=== PATIENT | female | born 1930 | race Caucasian/White ===

== ENCOUNTER 2017-03-17 17:58 | Emergency (ER) | payer MEDICARE, OTHER ==
[~2017-03-17] VITALS: Ht 160 cm; Wt 56.7 kg
[2017-03-17] MEDS ORDERED: IRBE300T10 (18:11)
[2017-03-17] MEDS ORDERED: BUPR150T3 (18:11)
[2017-03-17] MEDS ORDERED: ISOS30TA4 (18:11)
[2017-03-17] MEDS ORDERED: METO100T (18:11)
[2017-03-17] MEDS ORDERED: SIMV20TA2 (18:11)
[2017-03-17] MEDS ORDERED: VITA50003 (18:11)
--- NOTE | 2017-03-17 20:00 | REPUSA ---
CLINICAL HISTORY: Fall. TECHNIQUE: Multiple axial CT images were obtained through the brain without IV contrast material. COMMENTS: There is normal configuration of sella turcica. There are no intra or extra-axial collections. There is no mass effect or midline shift. There is no evidence of hematoma formation. No hydrocephalus is p resent. The ventricles are symmetrical. No abnormal calcifications are present. There is diffuse age-appropriate cerebellar and cerebral atrophy with proportionally dilated ventricl es and cortical sulci. There are bilateral periventricular and subcortical white matter hypolucencies compatible with mild c hronic microvascular disease. Otherwise, no significant focal abnormalities are seen either in the posterior fossa or supratentoria l compartment. Note is made of a 12 mm sclerotic lesion in the right skull base which is not fully evaluated. Consi kenny further evaluation with MRI pre-and postcontrast. No evidence of fracture. IMPRESSION: 1. Age-appropriate cerebellar and cerebral atrophy. 2. Mild chronic microvascular disease. 3. No evidence of acute intracranial pathology. 4. 12 mm sclerotic lesion in the right skull base which is not fully evaluated. Consider further zia luation with MRI pre-and postcontrast. Thank you for your kind referral of this patient.
--- NOTE | 2017-03-17 20:30 | REPUSA ---
CLINICAL HISTORY: Medicare, fall, head injury. TECHNIQUE: Multiple axial CT images were obtained through the cervical spine without IV contrast mat erial. MPR coronal and sagittal sequences were obtained. COMMENTS: There is no fracture visualized. The paraspinal soft tissues are unremarkable. There are no lytic o r blastic lesions. Grade 1 anterolisthesis of C3 over C4 measures 3 mm. There is grade 1 anterolisthesis of C4 over C5 measures 2 mm. Advanced multilevel degenerative spondylosis is more severe at C4-C5, C5-C6. At this level, there is bzkglnjb-rl-bopxwo loss of disc space height. There is posterior-anterior bridging osteophytosis, Schmorl's nodes and endplate sclerosis. At C3-C4 through C5-C6 broad-based disc osteophyte complex is present. There is yyphxbwe-dh-gyoqyz b ilateral foraminal stenosis and peyv-dr-tgjksese canal stenosis. Note is made of a sclerotic lesion measuring 7 mm located in the posterior aspect of C7 vertebral bod y to the right of the midline. Consider further evaluation with MRI cervical spine pre- and postcont rast. In conjunction with findings on CT of the brain, consider additional evaluation with bone scan . Incidental note is made of severe biapical fibronodular scarring and scattered emphysematous changes. Consider also additional evaluation with chest CT. IMPRESSION: 1. Grade 1 anterolisthesis of C3 over C4 measures 3 mm. There is grade 1 anterolisthesis of C4 over C5 measures 2 mm. Advanced multilevel degenerative spondylosis is more severe at C4-C5, C5-C6. At t his level, there is rdplqyva-ui-xopxqn loss of disc space height. There is posterior-anterior bridgi ng osteophytosis, Schmorl's nodes and endplate sclerosis. At C3-C4 through C5-C6 broad-based disc os teophyte complex is present. There is ktcidvyh-fj-yjbceg bilateral foraminal stenosis and mild-to-mo derate canal stenosis. 2. A sclerotic lesion measuring 7 mm located in the posterior aspect of C7 vertebral body to the righ t of the midline. Consider further evaluation with MRI cervical spine pre- and postcontrast. In con junction with findings on CT of the brain, consider additional evaluation with bone scan. 3. Severe biapical fibronodular scarring and scattered emphysematous changes. Consider also addition al evaluation with chest CT. Thank you for your kind referral of this patient. We appreciate the opportunity to participate in thi s patient's care.
[2017-03-17 20:52] VITALS: BP 175/97
--- NOTE | 2017-03-18 05:46 | REP ---
Rib pain after fall. PRIORS: None. The bones are markedly demineralized. There is respiratory motion artifact. A right lower rib fracture cannot be ruled out. In addition, there is a subtle lucency seen involving the scapula. I cannot assess for fracture on this exam. IMPRESSION: Limited exam. Fractures, as described above, cannot be ruled out. Signed by Jimmy Hurtado DO 03/18/2017 03:36 P
--- NOTE | 2017-03-19 14:27 | ED PDOC ---
Post-Departure Follow-Up catrachito rucker fasxed formal report of ct head and c spine for fu Carl Noriega MD March 19, 2017 14:27
== END 2017-03-17 20:54 | disposition home or self-care (01) ==
LOC: M ED 19:03
DX: R29.6 Repeated falls (principal); R93.0 Abnormal findings on diagnostic imaging of skull and head, not elsewhere classified; R93.8 Abnormal findings on diagnostic imaging of other specified body structures; M54.9 Dorsalgia, unspecified; I10 Essential (primary) hypertension; E78.00 Pure hypercholesterolemia, unspecified; Z87.891 Personal history of nicotine dependence; Z79.899 Other long term (current) drug therapy

== ENCOUNTER → 2017-04-29 | Outpatient (REF) | payer MEDICARE, OTHER ==
[~2017-04-29] MED LIST: BUPR150T3; BUPR150T3 PO; CALC1TAB9 PO; CLON0.1D3; CLON0.1D3 TD; COUM2.5T17 PO; DRIS50002 PO; FLEEENE4 PR; HYDR-3713 PO; HYDR25TA6; HYDR25TAB PO; IRBE300T10; IRBE300T10 PO; ISOS30TA4; ISOS30TA4 PO; MAPA325T3 PO; METO100T5; METO100T5 PO; METO50TA7 PO; NORCOTAB PO; ONDA4TAB5 PO; PEG1POW PO; PERCOCET PO; SENN1TAB2 PO; SIMV20TA2; SIMV20TA2 PO; TYLE325C PO; VITA1CAP40
[2017-04-29 15:43] LABS: ALBUMIN/GLOBULIN RATIO 1.43 (1.00-1.93); BILIRUBIN,TOTAL 0.6 MG/DL (0.2-1.0); CALCIUM LEVEL 9.3 MG/DL (8.8-10.2); CREATININE FOR GFR 1.33 MG/DL (0.55-1.02); GLOMERULAR FILTRATION RATE 40.1 (>32); TOTAL PROTEIN 6.8 GM/DL (6.4-8.2)
== END ==
LOC: M SFHCLACO 08:02
PROVIDERS: ATTEND Physician Assistant
DX: I10 Essential (primary) hypertension (principal); R73.01 Impaired fasting glucose; E78.2 Mixed hyperlipidemia; E55.9 Vitamin D deficiency, unspecified

== ENCOUNTER 2017-05-27 09:28 | Emergency (ER) | payer MEDICARE, OTHER ==
[~2017-05-27] VITALS: Ht 160 cm; Wt 59.1 kg
[~2017-05-27 09:28] MED LIST changes: -BUPR150T3 PO; -CALC1TAB9 PO; -CLON0.1D3; -CLON0.1D3 TD; -COUM2.5T17 PO; -DRIS50002 PO; -FLEEENE4 PR; -HYDR-3713 PO; -HYDR25TA6; -HYDR25TAB PO; -IRBE300T10 PO; -ISOS30TA4 PO; -MAPA325T3 PO; -METO100T5 PO; -METO50TA7 PO; -NORCOTAB PO; -ONDA4TAB5 PO; -PEG1POW PO; -PERCOCET PO; -SENN1TAB2 PO; -SIMV20TA2 PO; -TYLE325C PO
[2017-05-27] MEDS ORDERED: CLON0.1D3 (09:47)
[2017-05-27] MEDS ORDERED: HYDR25TA6 (09:47)
[2017-05-27] MEDS ORDERED: NORCO, ANEXSIA 5/325MG TABLET (HYDROcodone/ACETAMINOPHEN) PO ONE (10:15)
[2017-05-27] MEDS ORDERED: NORCOTAB PO (11:07)
--- NOTE | 2017-05-27 11:19 | REP ---
Left humerus: Two views. History: Trauma. Findings: Two views of the left humerus demonstrate an angulated and comminuted fracture of the proximal diaphysis of the left humerus. There is apex medial angulation and some override. There is diffuse osteoporosis. Signed by Noé Lloyd MD 05/27/2017 04:39 P
[2017-05-28] MEDS ORDERED: TYLE325C PO (00:05)
[2017-05-28 10:22] VITALS: BP 178/78
== END 2017-05-27 11:23 | disposition home or self-care (01) ==
LOC: M ED 09:28
DX: S42.335A Nondisplaced oblique fracture of shaft of humerus, left arm, initial encounter for closed fracture (principal); W01.10XA Fall on same level from slipping, tripping and stumbling with subsequent striking against unspecified object, initial encounter; Y92.009 Unspecified place in unspecified non-institutional (private) residence as the place of occurrence of the external cause; Y93.89 Activity, other specified; Y99.8 Other external cause status; I12.9 Hypertensive chronic kidney disease with stage 1 through stage 4 chronic kidney disease, or unspecified chronic kidney disease; N18.3 Chronic kidney disease, stage 3 (moderate); F41.9 Anxiety disorder, unspecified; Z79.899 Other long term (current) drug therapy

== ENCOUNTER 2017-05-27 23:47 | Emergency (ER) | payer OTHER ==
[~2017-05-27] VITALS: Ht 162.6 cm; Wt 56.8 kg
[~2017-05-27 23:47] MED LIST changes: +CLON0.1D3; +HYDR25TA6; +NORCOTAB PO
[2017-05-27 23:48] VITALS: BP 163/85
[2017-05-28] MEDS ORDERED: TYLE325C PO (00:05)
--- NOTE | 2017-05-28 07:45 | REP ---
Left humerus two views: There is a spiral fracture of the midshaft with angulation, overlapping and displacement of the fracture fragments. Signed by Yonathan Clark MD 05/28/2017 07:37 A
[2017-05-29] MEDS ORDERED: HYDR-3713 PO (07:25)
== END 2017-05-28 03:51 | disposition home or self-care (01) ==
LOC: M ED 23:47
DX: S42.335A Nondisplaced oblique fracture of shaft of humerus, left arm, initial encounter for closed fracture (principal); W01.10XA Fall on same level from slipping, tripping and stumbling with subsequent striking against unspecified object, initial encounter; Y92.89 Other specified places as the place of occurrence of the external cause; Y93.89 Activity, other specified; Y99.8 Other external cause status; I12.9 Hypertensive chronic kidney disease with stage 1 through stage 4 chronic kidney disease, or unspecified chronic kidney disease; N18.3 Chronic kidney disease, stage 3 (moderate); F41.9 Anxiety disorder, unspecified; Z79.899 Other long term (current) drug therapy

== ENCOUNTER 2017-05-28 10:26 | Day surgery (SDC) | payer OTHER ==
[~2017-05-28] VITALS: Ht 160 cm; Wt 66.5 kg
[~2017-05-28 10:26] MED LIST changes: +TYLE325C PO
[2017-05-28] MEDS ORDERED: fentaNYL 100 MCG/2 ML INJECTION (J3010) As Ordered ONE ×2 (10:43→12:32)
[2017-05-28] MEDS ORDERED: ONDANSETRON 4MG/2ML VIAL (J2405) As Ordered ONE (10:44)
[2017-05-28] MEDS ORDERED: LIDOCAINE 2% INJ 100 MG/5 ML SDV (FOR ANES.) As Ordered ONE (10:44)
[2017-05-28] MEDS ORDERED: MIDAZOLAM INJ 2 MG/2 ML VIAL (J2250) As Ordered ONE (10:44)
[2017-05-28] MEDS ORDERED: PROPOFOL 200 MG/20 ML VIAL As Ordered ONE (10:44)
[2017-05-28 10:48] LABS: MEAN CORPUSCULAR HGB CONC 32.9 g/dl (32.0-36.5); MEAN CORPUSCULAR VOLUME 79.1 fl (80.0-96.0); RED CELL DISTRIBUTION WIDTH 15.7 % (11.5-14.5); WHITE BLOOD COUNT 26.3 K/mm3 (4.0-10.0)
[2017-05-28] MEDS ORDERED: ceFAZolin SOD 1 GM in D5W MINI-BAG PLUS 50 ML IV ONE (11:00)
[2017-05-28 11:03] LABS: CALCIUM LEVEL 8.8 MG/DL (8.8-10.2); CREATININE FOR GFR 1.3 MG/DL (0.55-1.02); GLOMERULAR FILTRATION RATE 41.2 (>32); POTASSIUM SERUM 3.8 MEQ/L (3.5-5.1)
[2017-05-28] MEDS ORDERED: ceFAZolin 1GM INJ (J0690) As Ordered ONE (11:06)
[2017-05-28] MEDS ORDERED: ePHEDrine SULFATE 25 MG/5 ML(5MG/ML) SYRINGE As Ordered ONE (11:46)
[2017-05-28] MEDS ORDERED: PHENYLephrine HCL 500 MCG/5 ML (100MCG/ML) SYRINGE (J2370) As Ordered ONE (11:49)
[2017-05-28] MEDS ORDERED: SUGAMMADEX SODIUM 500 MG/5 ML VIAL (BRIDION) As Ordered ONE (13:05)
[2017-05-28] MEDS ORDERED: ESMOLOL INJ 100MG/10ML VIAL As Ordered ONE (13:29)
[2017-05-28] MEDS ORDERED: MORPHINE 2 MG/ML 1ML SYRINGE IV PRN (14:00)
[2017-05-28] MEDS ORDERED: ONDANSETRON 4MG/2ML VIAL (J2405) IV PRN (14:00)
[2017-05-28] MEDS ORDERED: NORCO, ANEXSIA 5/325MG TABLET (HYDROcodone/ACETAMINOPHEN) PO PRN (14:00)
[2017-05-28] MEDS ORDERED: LR 1,000 ML IV SCH (14:00)
[2017-05-28] MEDS ORDERED: ACETAMINOPHEN TAB 650MG DOSE (2X325MG) PO PRN (14:00)
[2017-05-28] MEDS ORDERED: fentaNYL 100 MCG/2 ML INJECTION (J3010) IV PRN (14:00)
[2017-05-28 14:40] VITALS: BP 136/60
[2017-05-28 14:45] VITALS: BP 139/72
[2017-05-28 15:10] VITALS: BP 141/74
[2017-05-28] MEDS: MULTIVITAMINS/MINERALS THERAP 1 TAB PO SCH (15:33)
[2017-05-28] MEDS: LR 1,000 ML IV SCH (15:33)
[2017-05-28 16:10] VITALS: BP_SYST 136; BP_SYST 139; BP_DIAS 63; BP_DIAS 64
[2017-05-28] MEDS: METOPROLOL TARTRATE 100 MG TAB PO SCH (16:11)
[2017-05-28] MEDS: buPROPion **XL** TABLET 150MG (WELLBUTRIN XL) PO SCH (16:12)
[2017-05-28] MEDS: SIMVASTATIN 20 MG TAB PO SCH (16:12)
[2017-05-28] MEDS: TELMISARTAN 20 MG TAB PO SCH (17:52)
[2017-05-28] MEDS: ceFAZolin SOD 1 GM in D5W MINI-BAG PLUS 50 ML IV SCH (17:52)
[2017-05-28 18:10] VITALS: BP 136/63
[2017-05-28 22:00] VITALS: BP 147/70
--- NOTE | 2017-05-28 22:38 | ECGEPIP ---
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
[2017-05-29] MEDS: ceFAZolin SOD 1 GM in D5W MINI-BAG PLUS 50 ML IV SCH ×3 (01:08→12:00)
[2017-05-29 02:00] VITALS: BP 139/72
[2017-05-29] MEDS: LR 1,000 ML IV SCH (03:22)
[2017-05-29 06:00] VITALS: BP 153/72
[2017-05-29] MEDS ORDERED: HYDR-3713 PO (07:25)
[2017-05-29 08:32] VITALS: BP 153/72
[2017-05-29] MEDS: MULTIVITAMINS/MINERALS THERAP 1 TAB PO SCH (08:32)
[2017-05-29] MEDS: METOPROLOL TARTRATE 100 MG TAB PO SCH (08:32)
[2017-05-29] MEDS: SIMVASTATIN 20 MG TAB PO SCH (08:32)
[2017-05-29] MEDS: buPROPion **XL** TABLET 150MG (WELLBUTRIN XL) PO SCH (08:32)
[2017-05-29] MEDS: TELMISARTAN 20 MG TAB PO SCH (09:00)
--- NOTE | 2017-05-29 15:00 | HPE ---
DATE OF ADMISSION: 05/28/2017 REASON FOR ADMISSION: Probable grade 1 open fracture proximal humerus left shoulder. 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 She was seen by the emergency room physician, Dr. Marti, who called me and I had her come up to the office and evaluate her and found to have a proximal one-third long oblique somewhat comminuted fracture of the left proximal humerus and she was neurologically intact and not her injuries. She has just been recovering from rib fractures. She did have a bruise on her left chin, but there are no other neurologic troubles or complaints of pain or soreness and she was placed in a hanging arm cast with a collar and cuff device. She was sent home from the office and then later that afternoon our cast tech brought to my attention that when she was done applying the cast that there was a small tiny prick of blood in the shoulder area and put a Band-Aid on it. Because of that I thought that she should be reevaluated as this could have possibly become and open fracture. I called yesterday afternoon to no avail and then called last in the evening and finally contacted Mrs. Capellan and told her my concern, that we should reevaluate her, but she did not have any available transportation from up in [place] until the morning because her son and doebnsbp-rs-ezh were out of town and instructions were made to not eat breakfast and I will meet her in the emergency room as early as possible in the morning. I notified the operating room to prepare for potential open reduction internal fixation (ORIF) IND of the left proximal humerus fracture for her. So, those arrangements were made. This morning, I was evaluating her x-rays again and noted that there were x-rays again taken of her during the evening and it turns out that her daughter when they got home from out of town noted that there was bleeding on her gown and arm and called the on-call physician who instructed her to call 911 and come back to the emergency room, which she did last evening and was evaluated by the emergency room staff. There were x-rays done at 2:43 a.m. and was discharged home. So, I called the emergency room physician this morning to discuss what he found and he thought there was just a small amount of bleeding, possibly and abrasion and did not feel it was an open fracture. Eventually, I was able to get a hold of Mrs. Capellan and her family again this morning. I also discussed this with Dr. Lerma the collection analyst physician last night , who also communicated with the ER physician last night. The daughter states that a small amount of blood was squirting from the armpit area onto her sweater and her clothes. I said because of that, I need her to get right back to the hospital again, even though they just left and got home, because I am suspicious that this has become an open fracture and she would likely benefit to having this irrigated, debrided and stabilized surgically, so they were bringing her back in this morning and I am examining her now in the preoperative holding area. PAST MEDICAL HISTORY: Otherwise significant for: High blood pressure. Anxiety. Hyperlipidemia. Mild renal insufficiency. Hypercholesterolemia. Osteoporosis. Vitamin D deficiency. History of cataracts. Cystocele. MEDICATIONS: - Catapres - hydrochlorothiazide - metoprolol - irbesartan - isosorbide - simvastatin - Wellbutrin - Drisdol PAST SURGICAL HISTORY: Total abdominal hysterectomy and bilateral salpingo-oophorectomy. SOCIAL HISTORY: She does not smoke or drink alcohol excessively. She lives alone. She used to smoke cigarettes but quit many years ago. She has a son and nspfwxlu-iv-bmz who live just down the road from her in [place], [place]. Melody Isak cares for her medically in [place]. ALLERGIES: No known drug allergies. REVIEW OF SYSTEMS HEALTH SURVEY: Amended to the chart and per the last note from 05/06/2017 from Melody Parisi. No other real changes. PHYSICAL EXAMINATION: When I examine her, she is an alert, pleasant, elderly female. She is ambulatory. VITAL SIGNS: Temperature 97, blood pressure 178/78, pulse 82, respirations 18, oxygen saturation 93% on room air. HEENT: Benign. LUNGS: Clear to auscultation. HEART: Regular. I did not detect a murmur. ABDOMEN: Nontender. EXTREMITIES: Her left arm was swollen and ecchymotic and there was a question of whether or not there is a small pinhole barely perceptible, underneath a Band-Aid. I could express just a very small amount of blood from that area distally. She is in her long arm hanging cast. She could bend and straighten her fingers. Normal sensation. Good capillary refill. No motor strength loss was noted. Her radiographs taken at [facility] last evening were reviewed as well as the ones yesterday morning. IMPRESSION: This is an unstable comminuted proximal one-third humerus fracture, probably a grade 1 open fracture that has become open and I would recommend to her, and I discussed with her son and drfeshlo-qw-fnx the situation and that is likely best treated open because of the potential half-way risk of infection and also would probably help her heal this better and more comfortably because it is very unstable, but the risk of doing this of course is a risk of having surgery. There is risk of infection, damage to the nerves, blood vessels, anesthetic complications, damage to the blood vessels and nerves amongst other risks. They understand this and Mrs. Capellan understands this, and so she agrees. She has signed the consent and we are trying to get her ready for surgery. I have discussed this with the operating room staff as well as the technical support representative from the implant company, [employer], to make sure we have the appropriate implants available. I have talked this over with Dr. Harrison Lerma, orthopedic surgeon, who may have a chance to come and assist me with this as well. We plan to proceed as soon as she is ready. Labs and EKG are presently pending. SERENITY
--- NOTE | 2017-05-30 07:27 | RO ---
DATE OF PROCEDURE: 05/29/2017 PREPROCEDURE DIAGNOSIS: Grade 1 open left proximal one-third humerus fracture. POSTPROCEDURE DIAGNOSIS: Grade 1 open left proximal one-third humerus fracture. PROCEDURE: 1. Irrigation and debridement of grade 1 open proximal humerus fracture. 2. Open reduction, internal fixation of left proximal one-third humerus fracture using a proximal humeral locking plate by [employer]. SURGEON: Dr. Liana Torres PRIMER CHARGING TOOL SETTER: Harrison Lerma MD ANESTHESIA: General endotracheal tube anesthesia. COMPLICATIONS: None. ESTIMATED BLOOD LOSS: 200 mL. DESCRIPTION OF PROCEDURE: She was given Kefzol intravenously preoperatively, then a general endotracheal tube anesthetic was established. Love catheter was placed. She was positioned on the Quan table and a padded Barber stand was utilized. A small bump was placed under the left scapula, then her left upper extremity was carefully prepped and draped in the usual sterile fashion. After appropriate time-out was confirmed, a longitudinal incision was made on the anterior aspect of the upper arm for an anterolateral deltopectoral approach to this fracture. Bovie cautery was used to coagulate the crossing vessels. The cephalic vein was identified at the deltopectoral interval and the vein was retracted medially. The perforating vessels were coagulated. We developed the deltopectoral interval around the subacromial space and then distally the biceps muscle was carefully reflected and retracted medially following along toward the deltoid insertion distally and then the oblique fracture fragment was noted to extend through the deltoid incision. The distal fragment was then identified deep in the wound and at this point, the brachioradialis was encountered and we carefully split the brachioradialis down to bone. We carefully subperiosteally dissected medially and laterally and then irrigated out the fracture site and removed all the excess of hematoma. We utilized the pulse lavage and a 3 liter bag was used that contained Kefzol antibiotic. Once we thoroughly cleaned the fracture site, an open anatomic line to line reduction was performed and held with first a small alligator type clamp and then, once were satisfied with the reduction, we brought in a 8-hole proximal humeral locking plate into the field and laid it across the fracture and it appeared to be the appropriate size. Thus, we used a Verbrugge bone holding clamp to substitute for the alligator clamp and re-reduced the fracture holding the plate onto the bone, and then fluoroscopic imaging at this point was obtained to make sure that we had good alignment of the plate on the bone as well as proximal distal alignment especially regarding the locking plate screw holes proximal in the humeral head. A small guidepin was placed on the top of the head and we adjusted the plate appropriate so we got good alignment. We then fixed the plate into position on either side of the fracture using 3.5 cortical standard compression screws. A total of four were placed and then, we place the interfragmentary compression screw obliquely across the oblique portion of the fracture fragment using the 2.5 and 3.5 drill, and using a cortical 3.5 screw. At this point, we removed the Verbrugge clamp and then turned our attention toward the proximal locking screws in the humeral head. Using the drill sleeves and then using fluoroscope imaging, we drilled individually each locking screw to be sure we were at the right depth and the right angle, measured and placed the locking screws in the humeral head. Several were placed all with excellent position. Then, we confirmed good position by rotating in a lateral, coronal and saggital planes with the fluoroscope. The distal holes and the plate were then filled with 3.5 cortical screws as well. All screws were then secondarily tightened to be sure we had good cortical fixation. We were very satisfied with the reduction and placement of all the hardware. We then copiously irrigated once again the wound and then, we tried to repair the deltoid insertion across the plate in the mid portion of the incision and then irrigated again and closed the deep subdermal tissues with interrupted Vicryl sutures and skin was closed with miguel covered by adaptic dry sterile bulky dressing. She was placed into a sling and then awakened from general endotracheal tube anesthesia after having tolerated the procedure well, transferred to the recovery room in stable condition. There were no intraoperative complications.
== END 2017-05-29 13:55 | disposition home or self-care (01) ==
LOC: M SDC 10:26 → M MS5PR 14:25 → M SDC 05-29 13:55
PROVIDERS: ATTEND Orthopaedic Surgery
DX: S42.342B Displaced spiral fracture of shaft of humerus, left arm, initial encounter for open fracture (principal); W19.XXXA Unspecified fall, initial encounter; Y92.512 Supermarket, store or market as the place of occurrence of the external cause; Y93.89 Activity, other specified; Y99.2 Volunteer activity; I10 Essential (primary) hypertension; E78.2 Mixed hyperlipidemia; F41.9 Anxiety disorder, unspecified; E78.00 Pure hypercholesterolemia, unspecified; R73.01 Impaired fasting glucose; N28.9 Disorder of kidney and ureter, unspecified; E55.9 Vitamin D deficiency, unspecified; M81.0 Age-related osteoporosis without current pathological fracture; Z79.899 Other long term (current) drug therapy; Z87.891 Personal history of nicotine dependence
CPT/HCPCS: 24515; 36415; 73060; 80048; 85027; 86850; 86900; 86901; 93005; C1776; J0690; J2250; J2370; J2405; J3010

== ENCOUNTER → 2017-06-03 | Outpatient (REF) | payer MEDICARE, OTHER ==
[~2017-06-03] MED LIST changes: +BUPR150T3 PO; +CALC1TAB9 PO; +CLON0.1D3 TD; +COUM2.5T17 PO; +DRIS50002 PO; +FLEEENE4 PR; +HYDR-3713 PO; +HYDR25TAB PO; +IRBE300T10 PO; +ISOS30TA4 PO; +MAPA325T3 PO; +METO100T5 PO; +METO50TA7 PO; +ONDA4TAB5 PO; +PEG1POW PO; +PERCOCET PO; +SENN1TAB2 PO; +SIMV20TA2 PO
[2017-06-03 14:49] LABS: BASO # 0.2 K/mm3 (0.0-0.2); BASO % 1.1 % (0.0-1.0); EOS # 0.6 K/mm3 (0.0-0.50); EOS % 2.8 % (0.0-3.0); LARGE UNSTAINED CELL # 0.4 K/mm3 (0.0-0.4); LYMPH % 4.5 % (24.0-44.0); MEAN CORPUSCULAR HEMOGLOBIN 25.7 pg (27.0-33.0); MEAN CORPUSCULAR HGB CONC 32.4 g/dl (32.0-36.5); MEAN CORPUSCULAR VOLUME 79.5 fl (80.0-96.0); MONO % 9.1 % (0.0-5.0); NEUTROPHILS # 18.1 K/mm3 (1.8-7.7); NEUTROPHILS % 80.6 % (36.0-66.0); PLATELET COUNT, AUTOMATED 796 k/mm3 (150-450); RED CELL DISTRIBUTION WIDTH 15.3 % (11.5-14.5); WHITE BLOOD COUNT 22.4 K/mm3 (4.0-10.0)
[2017-06-03 15:18] LABS: ALBUMIN 3.2 GM/DL (3.2-5.2); ALBUMIN/GLOBULIN RATIO 1.23 (1.00-1.93); BILIRUBIN,TOTAL 1.3 MG/DL (0.2-1.0); CALCIUM LEVEL 8.9 MG/DL (8.8-10.2); CREATININE FOR GFR 1.21 MG/DL (0.55-1.02); GLOMERULAR FILTRATION RATE 44.7 (>32); POTASSIUM SERUM 4.6 MEQ/L (3.5-5.1); TOTAL PROTEIN 5.8 GM/DL (6.4-8.2)
== END ==
LOC: M SFHCLACO 10:09
PROVIDERS: ATTEND Physician Assistant
DX: I10 Essential (primary) hypertension (principal); E78.2 Mixed hyperlipidemia; R73.01 Impaired fasting glucose; E55.9 Vitamin D deficiency, unspecified

== ENCOUNTER 2017-08-05 08:48 | Inpatient (IN) | payer OTHER, MEDICARE ==
[~2017-08-05] VITALS: Ht 152.4 cm; Wt 55.0 kg
[~2017-08-05 08:48] MED LIST changes: -BUPR150T3 PO; -CALC1TAB9 PO; -CLON0.1D3 TD; -COUM2.5T17 PO; -DRIS50002 PO; -FLEEENE4 PR; -HYDR25TAB PO; -IRBE300T10 PO; -ISOS30TA4 PO; -MAPA325T3 PO; -METO100T5 PO; -METO50TA7 PO; -ONDA4TAB5 PO; -PEG1POW PO; -PERCOCET PO; -SENN1TAB2 PO; -SIMV20TA2 PO
[2017-08-05] MEDS: SENOKOT S TAB PO SCH ×2 (09:00→20:18)
[2017-08-05] MEDS ORDERED: fentaNYL 100 MCG/2 ML INJECTION (J3010) IV ONE (09:15)
[2017-08-05 09:31] LABS: BASO # 0.3 10^3/uL (0.0-0.2); EOS # 0.4 10^3/uL (0.0-0.50); EOS % 1.4 % (0.0-3.0); IMMATURE GRANULOCYTE % 2.1 % (0-0); LYMPH # 1.4 10^3/uL (1.5-4.5); LYMPH % 5.3 % (24.0-44.0); MEAN CORPUSCULAR HEMOGLOBIN 25.1 pg (27.0-33.0); MEAN CORPUSCULAR HGB CONC 31.2 g/dl (32.0-36.5); MEAN CORPUSCULAR VOLUME 80.7 fl (80.0-96.0); NEUTROPHILS % 82.2 % (36.0-66.0); PLATELET COUNT, AUTOMATED 719 10^3/uL (150-450); RED CELL DISTRIBUTION WIDTH 14.2 % (11.5-14.5); WHITE BLOOD COUNT 26.5 10^3/uL (4.0-10.0)
[2017-08-05 09:33] LABS: MONO # 2.1 10^3/uL (0.0-0.8); NEUTROPHILS # 21.8 10^3/uL (1.8-7.7)
--- NOTE | 2017-08-05 09:43 | REP ---
CT Head without contrast HISTORY: Fall COMPARISON: 03/17/2017 Areas of decreased attenuation are present in the periventricular white matter. This represents small-vessel ischemic disease. There is no intraparenchymal hemorrhage, acute infarct, mass or midline shift. The ventricular system and cortical sulci as well as subarachnoid space in the posterior fossa are dilated consistent with minimal volume loss. There is no extra cerebral collection. There is no fracture. The visualized sinuses are clear. IMPRESSION: 1. Small vessel ischemic disease. 2. Minimal volume loss. Signed by Jesus Leroy MD 08/05/2017 09:34 A
--- NOTE | 2017-08-05 10:08 | REP ---
BILATERAL HIPS: AP and lateral views of bilateral hips performed. There is an intertrochanteric fracture of the proximal right femur with varus deformity. No dislocation is seen. There is no fracture or dislocation of the left hip. Signed by Yonathan Son MD 08/05/2017 07:50 P
[2017-08-05 10:15] LABS: CALCIUM LEVEL 9.5 MG/DL (8.8-10.2); CREATININE FOR GFR 1.5 MG/DL (0.55-1.02); GLOMERULAR FILTRATION RATE 34.9 (>32); POTASSIUM SERUM 4.2 MEQ/L (3.5-5.1)
[2017-08-05] MEDS ORDERED: NS 1,000 ML IV SCH (10:15)
[2017-08-05 10:23] LABS: INR 1.07
[2017-08-05] MEDS ORDERED: CALC1TAB9 PO (10:43)
[2017-08-05] MEDS ORDERED: ISOS30TA4 PO (10:43)
[2017-08-05] MEDS ORDERED: BUPR150T3 PO (10:43)
[2017-08-05] MEDS ORDERED: METO100T5 PO (10:43)
[2017-08-05] MEDS ORDERED: SIMV20TA2 PO (10:43)
[2017-08-05] MEDS ORDERED: CLON0.1D3 TD (10:43)
[2017-08-05] MEDS ORDERED: IRBE300T10 PO (10:43)
[2017-08-05] MEDS ORDERED: HYDR25TAB PO (10:43)
[2017-08-05] MEDS ORDERED: DRIS50002 PO (10:43)
--- NOTE | 2017-08-05 10:48 | REP ---
Chest one-view HISTORY: Chest pain Comparison: 03/17/2017 The lungs are clear. The cardiac silhouette is enlarged. The pulmonary vasculature is normal in appearance. Impression: Cardiomegaly. Signed by Jesus Leroy MD 08/05/2017 10:39 A
[2017-08-05] MEDS ORDERED: ACETAMINOPHEN TAB 650MG DOSE (2X325MG) PO PRN ×2 (11:30→18:15)
[2017-08-05] MEDS ORDERED: MORPHINE 2 MG/ML 1ML SYRINGE IV PRN (11:30)
--- NOTE | 2017-08-05 12:56 | CR ---
DATE OF CONSULTATION: 08/05/2017 REQUESTING PROVIDER: Dr. Acuna CHIEF COMPLAINT: Right hip fracture. HISTORY: This an 87-year-old woman who fell earlier this morning injuring her right hip. She is noted to have a displaced intertrochanteric right hip fracture. Other workup so far for fractures has been negative, although a knee x-ray is pending. She denies any other injury other than some mild right knee pain. PAST MEDICAL HISTORY: Her past medical history is notable for hypertension, hypercholesterolemia. She apparently has been cleared from a medical standpoint. MEDICATIONS: At home include: - vitamin D - clonidine - bupropion - metoprolol - isosorbide mononitrate - hydrochlorothiazide - irbesartan - calcium ALLERGIES: No known drug allergies. REVIEW OF SYSTEMS: Denies any current chest pain, shortness of breath. Denies any other musculoskeletal injuries. Cardiac: As noted above with some hypertension. Denies taking any blood thinners. PHYSICAL EXAMINATION: She is alert, oriented. No acute distress. HEENT: Extraocular muscles intact. Pharynx benign. HEART: She has a regular rate and rhythm to her pulse. LUNGS: Nonlabored breathing. ABDOMEN: Benign abdomen. EXTREMITIES: Her right lower extremity demonstrates some shortening and external rotation. She moves her toes well and has good capillary refill distally. Does have multiple varicosities. She has some mild swelling and redness over the anterior aspect of her proximal tibia and tibial tubercle region, presumably where she landed, but is not particularly tender to palpation around the knee. Hip range of motion was not performed on the right. She did not seem to be irritable to range of motion on the left. Radiographs reviewed of her pelvis and both hips. She has a displaced intertrochanteric fracture of her right hip. She apparently had previously declined a knee x-ray on the right but I am going to try to reorder that and I have talked to her about that. IMPRESSION: Right intertrochanteric hip fracture in an 87-year-old woman. RECOMMENDATIONS: Suggested that we proceed with surgical treatment for this in order to get her more comfortable and try to get her up ambulating. She lives with some family members in what sounds like a duplex type house. She wished to go ahead with this. She understands the nature of this, the risks of bleeding, infection, damage to nerves, vessels, persistent pain, malunion, nonunion, loss of reduction, blood clots, medical problems, , among others. We will plan on proceeding with open reduction, internal fixation (ORIF) of the right hip, most likely with an IM nail, such as a [employer] TFN nail, possibly a plate and screws.
[2017-08-05 13:20] VITALS: BP 166/86
[2017-08-05 14:31] LABS: REASON FOR REVIEW COMPREHENSIVE REVIEW
[2017-08-05] MEDS: METOPROLOL TARTRATE 100 MG TAB PO SCH (15:12)
[2017-08-05] MEDS: ISOSORBIDE MON. (IMDUR) 30 MG XR TAB PO SCH (15:12)
--- NOTE | 2017-08-05 15:57 | HPEPDOC ---
General Date of Admission Aug 05, 2017 at 11:21 Primary Care Physician: Melody Parisi PA-C, LAC Chief Complaint The patient is a 87-year-old female Presented to the ER with right hip pain after she had fallen outside her home. History of Present Illness Patient is an 87 year old female with a PMHx of HTN, DLP, CKD3, Osteoporosis, Vitamin D deficiency, Depression / Anxiety and Hx of a Cystocele who presented to the ER with complaints of right hip pain after she had fallen at home. Patient was outside walking her dog and she noted that she may have tripped on a tree stump and fallen backward on to her buttock. She noted that did not loose consciousness, did not have any head trauma. She denied any symptoms that caused her to fall. Denied any chest pain, shortness of breath, dizziness or light-headeness. When patient was on the ground she tried to get up, but noted that she could not because of severe right hip pain. She called for her daughter in law who was unable to help her up. After some time, her son was contacted and they were able to lift her into a car and bring her to the ER. In the ER patient had imaging done that was consistent with a Right hip fracture. Hospitalist team was called for admission given her advanced age and comorbidities and orthopedic surgery was consulted for her fractured hip. Patient denied any sensory loss, muscles weakness, incontinence, chest pain, shortness of breath or cough. She denied abdominal pain, nausea, vomiting, diarrhea or dysuria. She does note occasional constipation. She denied any fever or chills recently. Patient does not have a history of HI / Stroke / CHF or Arrhythmias. She does not have a firmware architect outside the hospital. She is noted to walk regularly of 400 feet daily and go up a flight of stairs without experiencing any chest pain or shortness of breath. Patient recently had a surgery on 05/2017 for a left humerus fracture with Dr. Lakshmi Ramsay that was un-eventful. Home Medications Scheduled Bupropion Hcl (Bupropion HCl Xl) 150 Mg Tab, 150 MG PO DAILY, (Reported) Calcium Citrate (Calcitrate) 950 Mg Tab, 950 MG PO QMONTH, (Reported) Clonidine Hydrochloride (Clonidine HCl) 0.1 Mg/24 Hr Dis, 0.1 MG TD QWEEK, ( Reported) MONDAYS-CURRENTLY ON RIGHT ARM Hydrochlorothiazide (Hydrochlorothiazide) 25 Mg Tab, 25 MG PO DAILY, (Reported) Irbesartan (Irbesartan) 300 Mg Tab, 300 MG PO DAILY, (Reported) Isosorbide Mononitrate (Isosorbide Mononitrate ER) 30 Mg Tab, 30 MG PO DAILY, ( Reported) Metoprolol Tartrate (Metoprolol Tartrate) 100 Mg Tab, 100 MG PO DAILY, (Reported ) Simvastatin (Simvastatin) 20 Mg Tab, 20 MG PO DAILY, (Reported) Vitamin D (Drisdol) 50,000 Unit Cap, 50,000 UNIT PO QMONTH, (Reported) Allergies Coded Allergies: No Known Allergies (Unverified , 03/17/17) Past Medical History Medical History See HPI Surgical History Hysterectomy and bilateral salpingo-opherectomy (1992) Bilateral cataract surgery (2006) Left humerus fracture s/p ORIF (05/2017) Cystocele (not corrected) Family History - Non-contributory given advanced age Social History - Denies the use of illicit drugs; Quit smoking 50 years prior, smoker of 20 years at 1 ppd, Social alcohol use - Denies recent travel or sick contacts - Lives with son and daughter in law - 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; 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 Review of Symptoms Other systems Negative otherwise stated in HPI Vital Signs - Vitals: BP 166/86, HR 77, RR 18, Sat 94%RA, Temp 98.0F - General: Lying in bed, No acute distress, Speaking in full sentences, AAOx3 - HEENT: NC, AT, PERRLA, EOMI - CVS: RRR, +S1S2 - Lungs: Fair air entry bilaterally, Clear to auscultation, No wheezing / rales / rhonchi - Abdomen: Soft, Non-distended, Non-tender - Extremities: + PPx4, No lower extremity edema, No calf tenderness, Right leg externally rotated and shorter than left - Neuro: Sensory deficit; limited ROM of right hip - Skin: No visible rashes Laboratory Data Labs 24H Laboratory Tests 2 08/05/17 09:17: White Blood Count 26.5H, Red Blood Count 6.84H, Hemoglobin 17.2H, Hematocrit 55.2H, Mean Corpuscular Volume 80.7, Mean Corpuscular Hemoglobin 25.1L, Mean Corpuscular Hemoglobin Concent 31.2L, Red Cell Distribution Width 14.2, Platelet Count 719H, Neutrophils (%) (Auto) 82.2H, Lymphocytes (%) (Auto) 5.3L, Monocytes (%) (Auto) 8.0H, Eosinophils (%) (Auto) 1.4, Basophils (%) (Auto) 1.0 , Neutrophils # (Auto) 21.8H, Lymphocytes # (Auto) 1.4L, Monocytes # (Auto) 2.1H , Eosinophils # (Auto) 0.4, Basophils # (Auto) 0.3H, Immature Granulocyte # ( Auto) 0.6H, Nucleated Red Blood Cells % (auto) 0.0, Anion Gap 8, Glomerular Filtration Rate 34.9, Blood Urea Nitrogen 37H, Creatinine 1.50H, Sodium Level 139, Potassium Level 4.2, Chloride Level 103, Carbon Dioxide Level 28, Calcium Level 9.5 08/05/17 10:00: Prothrombin Time 14.0, Prothromb Time International Ratio 1.07, Activated Partial Thromboplast Time 52.2H, Mix PTT Patient/Normal 1:1 41.3 08/05/17 10:38: Differential Slide Review Report, Differential Pathologist's Review COMPREHENSIVE REVIEW, Peripheral Blood Smear Path Consult PERIPHERAL SMEAR, Lactic Acid Level 1.3, Total Creatine Kinase 47, Creatine Kinase MB 1.0, Creatine Kinase MB Relative Index 2.12, Troponin I 0.02, BT-Ojg-V-Type Natriuretic Peptide 1299H 08/05/17 11:12: Urine Appearance HAZY, Urine Color YELLOW, Urine pH 5.0, Urine Specific Avery 1.014, Urine Protein NEGATIVE, Urine Glucose (UA) NEGATIVE, Urine Ketones NEGATIVE, Urine Urobilinogen 0.2, Urine Bilirubin NEGATIVE, Urine Leukocyte Esterase NEGATIVE, Urine Blood 1+H, Urine Nitrite POSITIVE, Urine WBC (Auto) 3, Urine RBC (Auto) 3, Urine Hyaline Casts (Auto) 0, Urine Bacteria (Auto) 1+H, Urine Squamous Epithelial Cells 0, Urine Mucus (Auto) SMALL, Urine Sperm (Auto) CBC/BMP Laboratory Tests 08/05/17 09:17 Red Blood Count 6.84 H, Mean Corpuscular Volume 80.7, Mean Corpuscular Hemoglobin 25.1 L, Mean Corpuscular Hemoglobin Concent 31.2 L, Red Cell Distribution Width 14.2, Neutrophils (%) (Auto) 82.2 H, Lymphocytes (%) (Auto) 5.3 L, Monocytes (%) (Auto) 8.0 H, Eosinophils (%) (Auto) 1.4, Basophils (%) ( Auto) 1.0, Neutrophils # (Auto) 21.8 H, Lymphocytes # (Auto) 1.4 L, Monocytes # (Auto) 2.1 H, Eosinophils # (Auto) 0.4, Basophils # (Auto) 0.3 H, Calcium Level 9.5 Plan / VTE VTE Prophylaxis Ordered?: Yes Plan Plan Right hip pain likely 2/2 right hip fracture at femoral neck - Presented after a mechanical fall at home - Physical with an external rotated and shorter leg - Distal pulses intact and is able to move distal portion of extremity, limited ROM of right hip - EKG reviewed; QTc of 439, NSR at HR of 77, artifact present at baseline, no T- wave changes noted; compared to 05/28/17 - Troponin x1 negative - Medically cleared for surgery today; no cardiac history noted - Dr. Tirado consulted for surgery - Pain control and anticoagulation as per orthopedic surgery Elevated WBC / Elevated Platelet Count / Elevated Hg - Labs compared to 05/2017 appear consistent with current labs - Afebrile and review of systems remains negative - UA and CXR does not appear to show any signs of infection - Will sent for LAP score and peripheral smear - Will consider starting ASA 81 daily after surgery - c/w IV fluid hydration for now HTN - c/w Clonidine patch and Metoprolol - Will hold Irbesartan and HCTZ DLP - c/w Simvastatin Elevated Cr on CKD3 - Cr baseline appears to be between 1.2 and 1.3 - Currently at 1.5 - Will start IV fluid hydration Osteoporosis - Will need to f/u outpatient with PCP Vitamin D deficiency - Will hold supplementation Depression / Anxiety - c/w Bupropion Hx of a Cystocele DVT prophylaxis - Will start SCDs for now TYLER LOCKHART MD Aug 05, 2017 15:57
[2017-08-05] MEDS ORDERED: MIDAZOLAM INJ 2 MG/2 ML VIAL (J2250) As Ordered ONE (16:02)
[2017-08-05] MEDS ORDERED: KETAMINE HCL 200 MG/20 ML VIAL As Ordered ONE (16:02)
[2017-08-05] MEDS ORDERED: PROPOFOL 200 MG/20 ML VIAL As Ordered ONE (16:02)
[2017-08-05] MEDS ORDERED: ceFAZolin 1GM INJ (J0690) As Ordered ONE ×2 (16:13→16:59)
[2017-08-05] MEDS ORDERED: PHENYLephrine HCL 500 MCG/5 ML (100MCG/ML) SYRINGE (J2370) As Ordered ONE (16:48)
[2017-08-05] MEDS ORDERED: MORPHINE 1MG/ML IN 0.9% NACL 100ML IV BAG As Ordered ONE (17:58)
[2017-08-05] MEDS ORDERED: ONDANSETRON 4MG/2ML VIAL (J2405) IV PRN ×3 (18:15)
[2017-08-05] MEDS ORDERED: HYDROmorphone HCL 1 MG/ML SYRINGE (J1170) IV PRN (18:15)
[2017-08-05] MEDS ORDERED: NALBUPHINE HCL 10 MG/ML AMP (J2300) IV PRN (18:15)
[2017-08-05] MEDS ORDERED: PERCOCET 5MG/325MG TAB PO PRN (18:15)
[2017-08-05] MEDS ORDERED: FLEET ENEMA PR PRN (18:15)
[2017-08-05] MEDS ORDERED: NALOXONE INJ 0.4 MG/1 ML VIAL (J2310) IV PRN (18:15)
[2017-08-05] MEDS ORDERED: fentaNYL 100 MCG/2 ML INJECTION (J3010) IV PRN (18:15)
[2017-08-05] MEDS ORDERED: diphenhydrAMINE INJ 50MG/ML VIAL (J1200) IV PRN (18:15)
[2017-08-05] MEDS ORDERED: EPIDURAL/PCA KEYS XX PRN (18:15)
[2017-08-05] MEDS ORDERED: MORPHINE 1MG/ML IN 0.9% NACL 100ML IV BAG IV PRN (18:15)
[2017-08-05] MEDS ORDERED: ePHEDrine SULFATE 25 MG/5 ML(5MG/ML) SYRINGE IV SCH (18:15)
[2017-08-05] MEDS ORDERED: LR 1,000 ML IV SCH ×2 (18:15)
--- NOTE | 2017-08-05 18:19 | REP ---
C-ARM VIEWS, RIGHT HIP: Four C-ARM views of the right hip were performed during placement of metallic internal fixation. 77 seconds fluoroscopy time was utilized. Signed by Yonathan Son MD 08/05/2017 07:57 P
[2017-08-05 19:00] VITALS: BP 100/61
[2017-08-05 19:30] VITALS: BP 152/68
[2017-08-05 20:30] VITALS: BP 141/64
--- NOTE | 2017-08-05 20:48 | ECGEPIP ---
Stationary ECG Study [facility] - ED Test Date: 2017-08-05 Pat Name: KAN GARZA Department: Room: - Gender: F Online Services Manager: JT : [id number] Requested By: AMADEO Wall Order Number: [id number] Reading MD: Nancy Kowalski Measurements Intervals Julian Rate: 77 P: 89 OH: 183 QRS: -23 QRSD: 97 T: 79 QT: 407 QTc: 463 Interpretive Statements SINUS RHYTHM NSTTW ABNORMALITY LOW VOLTAGE LIMB BASELINE ARTIFACT LIMITS INTERPRETATION Electronically Signed On 08-05-2017 20:48:06 EDT by Nancy Kowalski
[2017-08-05] MEDS ORDERED: WARFARIN SOD 5 MG TAB PO ONE (21:00)
[2017-08-05 21:30] VITALS: BP 136/63
[2017-08-05 22:00] VITALS: BP 138/64
--- NOTE | 2017-08-06 01:19 | REP ---
Clinical: Trauma. Rule out fracture. Technique: AP and lateral views of the right knee. Findings: Moderate/early advanced tricompartmental osteoarthritic degenerative changes are appreciated. Findings include cortical irregularity, subtle early spurring, subchondral sclerosis. No acute fracture or dislocation identified. No definite effusion. Impression: Tricompartmental osteoarthritic degenerative changes. No acute fracture or dislocation identified. Signed by Ron Bonilla MD 08/06/2017 01:10 A
--- NOTE | 2017-08-06 01:42 | REP ---
Clinical: Trauma. Fall. Technique: Single AP view of the pelvis. Findings: Right femoral neck fracture noted. Age-related osteopenia and degenerative changes throughout the visualized lower lumbar spine, pelvis and hips. Impression: Acute right femoral neck fracture. Signed by Ron Bonilla MD 08/06/2017 01:33 A
[2017-08-06 02:00] VITALS: BP_SYST 135; BP_SYST 64; BP_DIAS 64
[2017-08-06 06:00] VITALS: BP 142/61
[2017-08-06] MEDS ORDERED: ONDANSETRON 4 MG TAB (S0181) PO PRN (07:00)
[2017-08-06 07:14] LABS: INR 1.33
[2017-08-06 07:15] LABS: MEAN CORPUSCULAR HEMOGLOBIN 25.3 pg (27.0-33.0); MEAN CORPUSCULAR HGB CONC 31.6 g/dl (32.0-36.5); MEAN CORPUSCULAR VOLUME 79.9 fl (80.0-96.0); PLATELET COUNT, AUTOMATED 654 10^3/uL (150-450); RED CELL DISTRIBUTION WIDTH 13.4 % (11.5-14.5); WHITE BLOOD COUNT 23.7 10^3/uL (4.0-10.0)
--- NOTE | 2017-08-06 07:20 | RO ---
DATE OF PROCEDURE: 08/05/2017 PREOPERATIVE DIAGNOSIS: Right intertrochanteric hip fracture. POSTOPERATIVE DIAGNOSIS: Right intertrochanteric hip fracture. PROCEDURE PERFORMED: Open reduction internal fixation of right intertrochanteric hip fracture with a Synthes TFNA nail SURGEON: Dr. Tonio Tirado. WIND TURBINE DESIGN ENGINEER: ANESTHESIA: Spinal ESTIMATED BLOOD LOSS: Less than 100. COMPLICATIONS: None. INDICATIONS: This is an 87-year-old woman who fell earlier today injuring her right hip. She had a displaced intertrochanteric hip fracture. She wished to go ahead with surgical treatment. Preop medical clearance was obtained. She understood the nature of the procedure as did her family, the risks of bleeding, infection, damage to nerves, vessels, persistent pain, malunion, nonunion, loss of reduction, blood clots, medical problems, among others. They understood that this was a significant injury for somebody this age and it could be very hard to recover from this both medically and to get people back to previous level of function. They wished proceed. DESCRIPTION OF PROCEDURE: The patient taken to the operating room and placed on the fracture table in the usual position. All areas were padded appropriately. The spinal anesthesia had been induced. The right hip was prepped and draped the usual sterile fashion. Time-out was performed. Prior to this, I had taken several C-arm images and made sure I could visualize the hip okay, which I was able to do so. The reduction was obtained by placing some gentle traction and internal rotation on the extremity. Once the hip was prepped and draped, a longitudinal incision was made which was quite short at the tip of the trochanter. I then dissected down through the fascia luther and placed a guide on the tip of the trochanter, advanced the guidewire and down the canal of the femur, which went in nicely. I confirmed on the lateral view that it was down the femur and [id number] on the tip of the trochanter. I then used the initiating drill to make a hole the proximal femur, switched out he guidewires and advanced in the short 11 mm, 130 degree TFNA nail. This was tapped down to a level that I felt was appropriate for the guidewire to go up into the center of the head. I actually tapped it in slightly too far and backed it out slightly. Then made an incision along the lateral side of the femur for the guide for the blade to go in. This was brought up against the side of the femur and I advanced a guidewire in, made sure it was centered in both planes in the AP and lateral and then drilled up to 100 mm and then placed a 95 mm blade, impacted this down and made sure it was seated against the lateral aspect of the femur. It looked to be in an excellent position on AP and lateral in terms of the head. It was within a centimeter of the apex of the femoral head. The screw was then used to tighten the inside of the nail down to the blade and backed off half a turn. I then placed a locking screw distally by placing the guide up against the lateral aspect of the femur, drilling, measuring and placed an appropriate length screw through the areli. Final imaging was used to confirm that the fracture was reduced in anatomic position. The hardware was excellent position and the hardware was of appropriate length. I irrigated copiously, closed the deep layer with #1-0 Vicryl suture. The subcu with #2-0 Vicryl and the skin with miguel. She was taken to recovery room in stable condition. There were no known complications. The plan will be routine postop. I am going to go with partial weightbearing with her, postop antibiotics, deep venous thrombosis (DVT) prophylaxis per routine.
[2017-08-06 07:35] LABS: ADD MANUAL DIFFER YES; ALBUMIN 2.8 GM/DL (3.2-5.2); ALBUMIN/GLOBULIN RATIO 1.08 (1.00-1.93); BILIRUBIN,TOTAL 0.6 MG/DL (0.2-1.0); CALCIUM LEVEL 8.3 MG/DL (8.8-10.2); CREATININE FOR GFR 1.01 MG/DL (0.55-1.02); DIFF SLIDE NUMBER 61; GLOMERULAR FILTRATION RATE 55.1 (>32); MAGNESIUM LEVEL 1.8 MG/DL (1.8-2.4); POTASSIUM SERUM 3.6 MEQ/L (3.5-5.1); TOTAL PROTEIN 5.4 GM/DL (6.4-8.2)
[2017-08-06] MEDS: MIRALAX *UNIT DOSE* 17GM PACKET PO SCH (09:52)
[2017-08-06] MEDS: SENOKOT S TAB PO SCH ×2 (09:52→20:02)
[2017-08-06] MEDS: SIMVASTATIN 20 MG TAB PO SCH (09:52)
[2017-08-06] MEDS: MOM 30ML SUSPENSION UDC PO SCH (09:52)
[2017-08-06] MEDS: ISOSORBIDE MON. (IMDUR) 30 MG XR TAB PO SCH (09:52)
[2017-08-06] MEDS: buPROPion **XL** TABLET 150MG (WELLBUTRIN XL) PO SCH (09:52)
[2017-08-06] MEDS: PERCOCET 5MG/325MG TAB PO PRN (09:53)
[2017-08-06] MEDS: METOPROLOL TARTRATE 100 MG TAB PO SCH (09:53)
--- NOTE | 2017-08-06 10:42 | REP ---
Right hip two views postoperative study: There is gamma nail internal fixation of an intertrochanteric fracture with the hardware and fracture in satisfactory positions alignment both projections. Signed by Yonathan Clark MD 08/06/2017 10:33 A
--- NOTE | 2017-08-06 13:41 | IPNPDOC ---
Text Note Date of Service The patient was seen on 08/06/17. NOTE Subjective: Patient is an 87 year old female with a PMHx of HTN, DLP, CKD3, Osteoporosis, Vitamin D deficiency, Depression / Anxiety and Hx of a Cystocele who presented to the ER with complaints of right hip pain after she had fallen at home. She was found to have a right hip fracture and hospitalist team was called to admit, orthopedic surgery was consulted for repair that was completed on 08/05/17. Patient was seen and examined at the bedside. She denies any pain at this time. She notes that she will be working with physical therapy today. Objective: Vitals (See below) General: Lying in bed, no acute distress, comfortable, AAOx3 HEENT: NC, AT CVS: RRR, +S1S2 Lungs: Fair air entry b/l, -w/r/r Abdomen: Soft, ND, NT Extremities: - Edema, - Calf tenderness Assessment and plan: Right hip pain - likely 2/2 right hip fracture at femoral neck - s/p ORIF ( - POD #1) - Presented after a mechanical fall at home and right hip pain, found to have fracture in ER - Physial with mild right hip pain - Dr. Tirado consulted for surgery; pain control and anticoagulation as per orthopedic surgery Elevated WBC / Elevated Platelet Count / Elevated Hg - possibly 2/2 reactive etiology and hemoconcentration, possibly 2/2 hematologic malignancy - Labs compared to 05/2017 appear consistent with current labs - Afebrile and review of systems remains negative - Peripheral smear appears to have a reactive process; no evidence of blast cells - LDH mildly elevated, LAP pending - s/p IV fluid hydration - Will continue to follow Elevated PT - Corrected with mixing study; indicating possible deficiency - Factor VIII and IX pending, Factor 8 function, vWF and Ristocetin Cofactor test - No evidence of bleeding or thrombosis - Awaiting lab work HTN - BP remains well controlled - c/w Clonidine patch and Metoprolol - Will hold Irbesartan and HCTZ DLP - c/w Simvastatin s/p Elevated Cr on CKD3 - Cr baseline appears to be between 1.2 and 1.3 - Cr better than baseline at this time - s/p IV fluid hydration Osteoporosis - Will need to f/u outpatient with PCP Vitamin D deficiency - Will hold supplementation Depression / Anxiety - c/w Bupropion Hx of a Cystocele DVT prophylaxis - Anticoagulation as per surgery VS,Fishbone, I+O VS, Fishbone, I+O Laboratory Tests 08/06/17 06:28 Red Blood Count 5.98 H, Mean Corpuscular Volume 79.9 L, Mean Corpuscular Hemoglobin 25.3 L, Mean Corpuscular Hemoglobin Concent 31.6 L, Red Cell Distribution Width 13.4, Monocytes # (Auto) , Calcium Level 8.3 L, Aspartate Amino Transf (AST/SGOT) 16, Alanine Aminotransferase (ALT/SGPT) 16, Alkaline Phosphatase 72, Total Bilirubin 0.6, Total Protein 5.4 L, Albumin 2.8 L Vital Signs Date Time Temp Pulse Resp B/P (MAP) Pulse Ox O2 Delivery O2 Flow Rate FiO2 08/06/17 10:23 16 08/06/17 09:53 66 113/65 08/06/17 06:00 97.6 96 Nasal Cannula 2.0 TYLER LOCKHART MD Aug 06, 2017 13:41
[2017-08-06 14:00] VITALS: BP 99/55
[2017-08-06] MEDS ORDERED: WARFARIN SOD 5 MG TAB PO ONE (17:00)
[2017-08-06 22:00] VITALS: BP 140/63
[2017-08-07 02:00] VITALS: BP_SYST 101; BP_SYST 127; BP_DIAS 55; BP_DIAS 59
[2017-08-07 06:00] VITALS: BP 143/60
[2017-08-07] MEDS ORDERED: MAGNESIUM CITRATE 300 ML BTL PO ONE (07:15)
[2017-08-07] MEDS ORDERED: MAGNESIUM CITRATE 300 ML BTL PO SCH (07:15)
[2017-08-07 07:20] LABS: MEAN CORPUSCULAR HEMOGLOBIN 25.2 pg (27.0-33.0); MEAN CORPUSCULAR HGB CONC 31.7 g/dl (32.0-36.5); MEAN CORPUSCULAR VOLUME 79.3 fl (80.0-96.0); PLATELET COUNT, AUTOMATED 650 10^3/uL (150-450); RED CELL DISTRIBUTION WIDTH 13.7 % (11.5-14.5); WHITE BLOOD COUNT 23.1 10^3/uL (4.0-10.0)
[2017-08-07 07:35] LABS: INR 3.14
[2017-08-07 07:36] LABS: ADD MANUAL DIFFER YES; DIFF SLIDE NUMBER 43
[2017-08-07 07:47] LABS: ALBUMIN 2.7 GM/DL (3.2-5.2); BILIRUBIN,TOTAL 0.6 MG/DL (0.2-1.0); CALCIUM LEVEL 8.1 MG/DL (8.8-10.2); CREATININE FOR GFR 1.02 MG/DL (0.55-1.02); GLOMERULAR FILTRATION RATE 54.4 (>32); MAGNESIUM LEVEL 2.1 MG/DL (1.8-2.4); POTASSIUM SERUM 3.8 MEQ/L (3.5-5.1); TOTAL PROTEIN 5.4 GM/DL (6.4-8.2)
[2017-08-07] MEDS: MIRALAX *UNIT DOSE* 17GM PACKET PO SCH (08:14)
[2017-08-07] MEDS: MOM 30ML SUSPENSION UDC PO SCH (08:14)
[2017-08-07] MEDS: SENOKOT S TAB PO SCH ×2 (08:14→20:05)
[2017-08-07] MEDS: SIMVASTATIN 20 MG TAB PO SCH (08:14)
[2017-08-07] MEDS: buPROPion **XL** TABLET 150MG (WELLBUTRIN XL) PO SCH (08:14)
[2017-08-07] MEDS: ISOSORBIDE MON. (IMDUR) 30 MG XR TAB PO SCH (08:15)
[2017-08-07] MEDS: METOPROLOL TARTRATE 100 MG TAB PO SCH (08:15)
[2017-08-07] MEDS ORDERED: INFLUENZA VIRUS VACCINE HIGH DOSE 0.5 ML SYRINGE (90662) IM ONE (09:00)
[2017-08-07 09:14] LABS: EOSINOPHILS 4 % (0-5)
[2017-08-07 09:16] LABS: GIANT PLATELETS 1+; MICROCYTOSIS 1+; POLYCHROMASIA 1+
--- NOTE | 2017-08-07 11:35 | IPNPDOC ---
Text Note Date of Service The patient was seen on 08/07/17. NOTE Subjective: Patient is an 87 year old female with a PMHx of HTN, DLP, CKD3, Osteoporosis, Vitamin D deficiency, Depression / Anxiety and Hx of a Cystocele who presented to the ER with complaints of right hip pain after she had fallen at home. She was found to have a right hip fracture and hospitalist team was called to admit, orthopedic surgery was consulted for repair that was completed on 08/05/17. Patient was seen and examined at the bedside. She notes that she worked with physical therapy yesterday and has moved around with the walker. She denies any other problems. Objective: Vitals (See below) General: Lying in bed, no acute distress, comfortable, AAOx3 HEENT: NC, AT CVS: RRR, +S1S2 Lungs: Fair air entry b/l, -w/r/r Abdomen: Soft, ND, NT Extremities: - Edema, - Calf tenderness Assessment and plan: Right hip pain - likely 2/2 right hip fracture at femoral neck - s/p ORIF ( - POD #2) - Presented after a mechanical fall at home and right hip pain, found to have fracture in ER - Physial with mild right hip pain - Dr. Tirado consulted for surgery; pain control and anticoagulation as per orthopedic surgery Elevated WBC / Elevated Platelet Count / Elevated Hg - possibly 2/2 reactive etiology and hemoconcentration, possibly 2/2 hematologic malignancy - Labs compared to 05/2017 appear consistent with current labs - Afebrile and review of systems remains negative - Peripheral smear appears to have a reactive process; no evidence of blast cells - LDH mildly elevated, LAP pending - s/p IV fluid hydration - Will continue to follow Elevated PT - Continues to remain elevated - Corrected with mixing study; indicating possible deficiency - Factor VIII and IX pending, Factor 8 function, vWF and Ristocetin Cofactor test - No evidence of bleeding or thrombosis - Awaiting lab work HTN - BP remains well controlled - c/w Clonidine patch and Metoprolol - Will hold Irbesartan and HCTZ DLP - c/w Simvastatin s/p Elevated Cr on CKD3 - Cr baseline appears to be between 1.2 and 1.3 - Cr better than baseline at this time - s/p IV fluid hydration Osteoporosis - Will need to f/u outpatient with PCP Vitamin D deficiency - Will hold supplementation Depression / Anxiety - c/w Bupropion Hx of a Cystocele DVT prophylaxis - Anticoagulation as per surgery VS,Fishbone, I+O VS, Fishbone, I+O Laboratory Tests 08/07/17 06:23 Red Blood Count 5.76 H, Mean Corpuscular Volume 79.3 L, Mean Corpuscular Hemoglobin 25.2 L, Mean Corpuscular Hemoglobin Concent 31.7 L, Red Cell Distribution Width 13.7, Monocytes # (Auto) , Calcium Level 8.1 L, Aspartate Amino Transf (AST/SGOT) 12 L, Alanine Aminotransferase (ALT/SGPT) 13, Alkaline Phosphatase 66, Total Bilirubin 0.6, Total Protein 5.4 L, Albumin 2.7 L Vital Signs Date Time Temp Pulse Resp B/P (MAP) Pulse Ox O2 Delivery O2 Flow Rate FiO2 08/07/17 08:15 143/60 08/07/17 06:00 98.8 77 18 93 Room Air 08/06/17 06:00 2.0 TYLER LOCKHART MD Aug 07, 2017 11:35
[2017-08-07 14:00] VITALS: BP 101/55
[2017-08-07 22:00] VITALS: BP 123/57
[2017-08-08 05:24] LABS: MEAN CORPUSCULAR VOLUME 80.5 fl (80.0-96.0); PLATELET COUNT, AUTOMATED 572 10^3/uL (150-450); RED CELL DISTRIBUTION WIDTH 13.4 % (11.5-14.5); WHITE BLOOD COUNT 20.7 10^3/uL (4.0-10.0)
[2017-08-08 05:33] LABS: INR 3.5
[2017-08-08 05:34] LABS: ADD MANUAL DIFFER YES; DIFF SLIDE NUMBER 36
[2017-08-08 05:50] LABS: ALBUMIN 2.6 GM/DL (3.2-5.2); ALBUMIN/GLOBULIN RATIO 1.13 (1.00-1.93); BILIRUBIN,TOTAL 0.7 MG/DL (0.2-1.0); CALCIUM LEVEL 8.3 MG/DL (8.8-10.2); CREATININE FOR GFR 1.02 MG/DL (0.55-1.02); GLOMERULAR FILTRATION RATE 54.4 (>32); MAGNESIUM LEVEL 2.8 MG/DL (1.8-2.4); POTASSIUM SERUM 4.5 MEQ/L (3.5-5.1); TOTAL PROTEIN 4.9 GM/DL (6.4-8.2)
[2017-08-08 06:00] VITALS: BP 115/56
[2017-08-08 06:45] LABS: BASOPHILS 3 % (0-4); EOSINOPHILS 3 % (0-5)
[2017-08-08] MEDS: METOPROLOL TARTRATE 100 MG TAB PO SCH (08:43)
[2017-08-08] MEDS: SENOKOT S TAB PO SCH ×3 (08:43→19:58)
[2017-08-08] MEDS: MIRALAX *UNIT DOSE* 17GM PACKET PO SCH ×2 (08:43→08:46)
[2017-08-08] MEDS: buPROPion **XL** TABLET 150MG (WELLBUTRIN XL) PO SCH (08:43)
[2017-08-08] MEDS: ISOSORBIDE MON. (IMDUR) 30 MG XR TAB PO SCH (08:43)
[2017-08-08] MEDS: SIMVASTATIN 20 MG TAB PO SCH (08:43)
[2017-08-08] MEDS ORDERED: PHYTONADIONE 1.25 MG 1/4 TAB PO ONE (10:00)
--- NOTE | 2017-08-08 13:47 | IPNPDOC ---
Text Note Date of Service The patient was seen on 08/08/17. NOTE Subjective: Patient is an 87 year old female with a PMHx of HTN, DLP, CKD3, Osteoporosis, Vitamin D deficiency, Depression / Anxiety and Hx of a Cystocele who presented to the ER with complaints of right hip pain after she had fallen at home. She was found to have a right hip fracture and hospitalist team was called to admit, orthopedic surgery was consulted for repair that was completed on 08/05/17. Patient was seen and examined at the bedside. She has been working with physical therapy and has been making progress. Advised that we will continue to work with physical therapy until we can establish clearance, possibly placement in sub-acute rehab if required. Objective: Vitals (See below) General: Lying in bed, no acute distress, comfortable, AAOx3 HEENT: NC, AT CVS: RRR, +S1S2 Lungs: Fair air entry b/l, -w/r/r Abdomen: Soft, ND, NT Extremities: - Edema, - Calf tenderness, R hip appears clean Assessment and plan: Right hip pain - likely 2/2 right hip fracture at femoral neck - s/p ORIF ( - POD #3) - Presented after a mechanical fall at home and right hip pain, found to have fracture in ER - Improvement in pain; hip appears clean - Dr. Tirado consulted for surgery; pain control and anticoagulation as per orthopedic surgery Elevated WBC / Elevated Platelet Count / Elevated Hg - possibly 2/2 reactive etiology and hemoconcentration, possibly 2/2 hematologic malignancy - Labs compared to 05/2017 appear consistent with current labs - Afebrile and review of systems remains negative - Peripheral smear appears to have a reactive process; no evidence of blast cells - LDH mildly elevated, LAP pending - s/p IV fluid hydration - Will continue to follow Elevated PT - Continues to remain elevated - Corrected with mixing study; indicating possible deficiency - Factor VIII / IX level, Factor 8 function, vWF and Ristocetin Cofactor test remain pending - No evidence of bleeding or thrombosis - Awaiting lab work HTN - BP remains well controlled - c/w Clonidine patch and Metoprolol - Will hold Irbesartan and HCTZ DLP - c/w Simvastatin s/p Elevated Cr on CKD3 - Cr baseline appears to be between 1.2 and 1.3 - Cr better than baseline at this time - s/p IV fluid hydration Osteoporosis - Will need to f/u outpatient with PCP Vitamin D deficiency - Will hold supplementation Depression / Anxiety - c/w Bupropion Hx of a Cystocele DVT prophylaxis - Anticoagulation as per surgery Disposition: - Awaiting PT clearance - Will discuss with PMD about continuing workup as outpatient VS,Fishbone, I+O VS, Fishbone, I+O Laboratory Tests 08/08/17 05:15 Red Blood Count 5.69 H, Mean Corpuscular Volume 80.5, Mean Corpuscular Hemoglobin 25.0 L, Mean Corpuscular Hemoglobin Concent 31.0 L, Red Cell Distribution Width 13.4, Monocytes # (Auto) , Calcium Level 8.3 L, Aspartate Amino Transf (AST/SGOT) 14 L, Alanine Aminotransferase (ALT/SGPT) 11 L, Alkaline Phosphatase 65, Total Bilirubin 0.7, Total Protein 4.9 L, Albumin 2.6 L Vital Signs Date Time Temp Pulse Resp B/P (MAP) Pulse Ox O2 Delivery O2 Flow Rate FiO2 08/08/17 08:43 71 115/56 08/08/17 06:00 96.7 18 96 Room Air 08/06/17 06:00 2.0 TYLER LOCKHART MD Aug 08, 2017 13:47
[2017-08-08 14:00] VITALS: BP 100/54
[2017-08-08] MEDS: PERCOCET 5MG/325MG TAB PO PRN (19:59)
[2017-08-08 22:00] VITALS: BP 144/72
[2017-08-09 06:00] VITALS: BP 133/65
[2017-08-09 07:24] LABS: BASO # 0.2 10^3/uL (0.0-0.2); BASO % 1.1 % (0.0-1.0); EOS # 0.8 10^3/uL (0.0-0.50); EOS % 4.2 % (0.0-3.0); IMMATURE GRANULOCYTE % 0.8 % (0-0); LYMPH # 1.1 10^3/uL (1.5-4.5); LYMPH % 5.9 % (24.0-44.0); MEAN CORPUSCULAR HEMOGLOBIN 24.8 pg (27.0-33.0); MEAN CORPUSCULAR HGB CONC 31.2 g/dl (32.0-36.5); MEAN CORPUSCULAR VOLUME 79.6 fl (80.0-96.0); MONO % 12.7 % (0.0-5.0); NEUTROPHILS # 13.8 10^3/uL (1.8-7.7); NEUTROPHILS % 75.3 % (36.0-66.0); PLATELET COUNT, AUTOMATED 559 10^3/uL (150-450); RED CELL DISTRIBUTION WIDTH 13.5 % (11.5-14.5); WHITE BLOOD COUNT 18.4 10^3/uL (4.0-10.0)
[2017-08-09 07:51] LABS: ALBUMIN 2.5 GM/DL (3.2-5.2); ALBUMIN/GLOBULIN RATIO 1.04 (1.00-1.93); BILIRUBIN,TOTAL 0.9 MG/DL (0.2-1.0); CALCIUM LEVEL 7.8 MG/DL (8.8-10.2); CREATININE FOR GFR 1.13 MG/DL (0.55-1.02); GLOMERULAR FILTRATION RATE 48.4 (>32); POTASSIUM SERUM 4.4 MEQ/L (3.5-5.1); TOTAL PROTEIN 4.9 GM/DL (6.4-8.2)
[2017-08-09 08:00] VITALS: BP 128/60
[2017-08-09 08:18] LABS: ADD MANUAL DIFFER NO; DIFF SLIDE NUMBER 28; MONO # 2.3 10^3/uL (0.0-0.8)
[2017-08-09 08:21] LABS: INR 1.86
[2017-08-09] MEDS ORDERED: INFLUENZA VIRUS VACCINE HIGH DOSE 0.5 ML SYRINGE (90662) IM ONE (09:00)
[2017-08-09] MEDS ORDERED: cloNIDine HCL 0.1 MG/24 HR PATCH TD SCH (09:00)
[2017-08-09] MEDS: MIRALAX *UNIT DOSE* 17GM PACKET PO SCH ×2 (09:00→09:14)
[2017-08-09] MEDS: SIMVASTATIN 20 MG TAB PO SCH (09:32)
[2017-08-09] MEDS: buPROPion **XL** TABLET 150MG (WELLBUTRIN XL) PO SCH (09:32)
[2017-08-09] MEDS: SENOKOT S TAB PO SCH ×2 (09:32→20:08)
[2017-08-09] MEDS: METOPROLOL TARTRATE 100 MG TAB PO SCH (09:33)
[2017-08-09] MEDS: ISOSORBIDE MON. (IMDUR) 30 MG XR TAB PO SCH (09:33)
[2017-08-09] MEDS: PERCOCET 5MG/325MG TAB PO PRN ×2 (09:34→20:08)
[2017-08-09 12:00] VITALS: BP 109/64
[2017-08-09] MEDS ORDERED: NS 1,000 ML IV SCH (13:15)
[2017-08-09 14:00] VITALS: BP 92/54
--- NOTE | 2017-08-09 14:57 | IPNPDOC ---
Text Note Date of Service The patient was seen on 08/09/17. NOTE Subjective: Patient is an 87 year old female with a PMHx of HTN, DLP, CKD3, Osteoporosis, Vitamin D deficiency, Depression / Anxiety and Hx of a Cystocele who presented to the ER with complaints of right hip pain after she had fallen at home. She was found to have a right hip fracture and hospitalist team was called to admit, orthopedic surgery was consulted for repair that was completed on 08/05/17. Patient was seen and examined at the bedside. She notes that she has been working with physical therapy. She continues to make progress. Denies any other problems. Objective: Vitals (See below) General: Lying in bed, no acute distress, comfortable, AAOx3 HEENT: NC, AT CVS: RRR, +S1S2 Lungs: Fair air entry b/l, -w/r/r Abdomen: Soft, ND, NT Extremities: - Edema, - Calf tenderness, R hip appears clean Assessment and plan: Right hip pain - likely 2/2 right hip fracture at femoral neck - s/p ORIF ( - POD #4) - Presented after a mechanical fall at home, found to have fracture in ER - Dr. Tirado consulted for surgery - Has improvement in pain - pain control and anticoagulation as per orthopedic surgery - c/w PT and determine disposition Elevated WBC / Elevated Platelet Count / Elevated Hg - possibly 2/2 reactive etiology and hemoconcentration, possibly 2/2 hematologic malignancy - Labs compared to 05/2017 appear consistent with current labs - Afebrile and review of systems remains negative - Peripheral smear appears to have a reactive process; no evidence of blast cells - LDH mildly elevated, LAP score normal - Will restart IV fluid hydration - Will continue to follow CBC trend Elevated PTT - Continues to remain elevated - Corrected with mixing study; indicating possible deficiency - Factor VIII / IX level, Factor 8 function, vWF and Ristocetin Cofactor test remain pending - No evidence of bleeding or thrombosis - Awaiting lab work HTN - BP remains well controlled - c/w Clonidine patch and Metoprolol - Will hold Irbesartan and HCTZ DLP - c/w Simvastatin Re-Elevated Cr on CKD3 - Cr baseline appears to be between 1.2 and 1.3 - Cr has shown slight elevation from yesterday - Will restart IV fluid hydration Osteoporosis - Will need to f/u outpatient with PCP Vitamin D deficiency - Will hold supplementation Depression / Anxiety - c/w Bupropion Hx of a Cystocele DVT prophylaxis - Anticoagulation as per surgery Disposition: - Awaiting PT clearance - Will discuss with PMD about continuing workup as outpatient VS,Riana, I+O VS, Riana, I+O Laboratory Tests 08/09/17 07:12 Red Blood Count 5.60 H, Mean Corpuscular Volume 79.6 L, Mean Corpuscular Hemoglobin 24.8 L, Mean Corpuscular Hemoglobin Concent 31.2 L, Red Cell Distribution Width 13.5, Neutrophils (%) (Auto) 75.3 H, Lymphocytes (%) (Auto) 5.9 L, Monocytes (%) (Auto) 12.7 H, Eosinophils (%) (Auto) 4.2 H, Basophils (%) (Auto) 1.1 H, Neutrophils # (Auto) 13.8 H, Lymphocytes # (Auto) 1.1 L, Monocytes # (Auto) 2.3 H, Eosinophils # (Auto) 0.8 H, Basophils # (Auto) 0.2, Calcium Level 7.8 L, Aspartate Amino Transf (AST/SGOT) 14 L, Alanine Aminotransferase (ALT/SGPT) 12, Alkaline Phosphatase 64, Total Bilirubin 0.9, Total Protein 4.9 L, Albumin 2.5 L Vital Signs Date Time Temp Pulse Resp B/P (MAP) Pulse Ox O2 Delivery O2 Flow Rate FiO2 08/09/17 14:00 97.3 56 16 92/54 (67) 93 Room Air 08/06/17 06:00 2.0 I&O- Last 24 Hours up to 6 AM 08/10/17 06:00 Intake Total 300 ml Balance 300 ml TYLER LOCKHART MD Aug 09, 2017 14:57
[2017-08-09] MEDS ORDERED: SODIUM CHLORIDE 0.9% 1000 ML IV ONE (15:00)
[2017-08-09 15:09] LABS: FACTOR 8 RISTOCETIN COFACTOR 83 % (50-200); FACTOR VIII ACTIVITY 69 % (57-163)
[2017-08-09 22:00] VITALS: BP 155/73
[2017-08-10 06:00] VITALS: BP 131/62
[2017-08-10] MEDS ORDERED: PEG1POW PO (06:54)
[2017-08-10] MEDS ORDERED: ONDA4TAB5 PO (06:54)
[2017-08-10] MEDS ORDERED: FLEEENE4 PR (06:54)
[2017-08-10] MEDS ORDERED: MAPA325T3 PO (06:54)
[2017-08-10] MEDS ORDERED: PERCOCET PO (06:54)
[2017-08-10] MEDS ORDERED: SENN1TAB2 PO (06:54)
[2017-08-10 07:08] LABS: MEAN CORPUSCULAR HEMOGLOBIN 24.9 pg (27.0-33.0); MEAN CORPUSCULAR HGB CONC 31.1 g/dl (32.0-36.5); MEAN CORPUSCULAR VOLUME 79.9 fl (80.0-96.0); PLATELET COUNT, AUTOMATED 626 10^3/uL (150-450); RED CELL DISTRIBUTION WIDTH 13.4 % (11.5-14.5); WHITE BLOOD COUNT 16.7 10^3/uL (4.0-10.0)
[2017-08-10 07:18] LABS: INR 1.92
[2017-08-10 07:30] LABS: ALBUMIN 2.4 GM/DL (3.2-5.2); ALBUMIN/GLOBULIN RATIO 0.86 (1.00-1.93); BILIRUBIN,TOTAL 0.6 MG/DL (0.2-1.0); CALCIUM LEVEL 8.1 MG/DL (8.8-10.2); CREATININE FOR GFR 1.02 MG/DL (0.55-1.02); GLOMERULAR FILTRATION RATE 54.4 (>32); MAGNESIUM LEVEL 2.8 MG/DL (1.8-2.4); POTASSIUM SERUM 4.3 MEQ/L (3.5-5.1); TOTAL PROTEIN 5.2 GM/DL (6.4-8.2)
[2017-08-10 07:41] LABS: ADD MANUAL DIFFER YES; DIFF SLIDE NUMBER 17
[2017-08-10 07:44] LABS: EOSINOPHILS 4 % (0-5)
[2017-08-10] MEDS: SENOKOT S TAB PO SCH (09:00)
[2017-08-10] MEDS: MIRALAX *UNIT DOSE* 17GM PACKET PO SCH (09:00)
[2017-08-10] MEDS: METOPROLOL TARTRATE 100 MG TAB PO SCH (09:09)
[2017-08-10 09:10] VITALS: BP 136/70
[2017-08-10] MEDS: ISOSORBIDE MON. (IMDUR) 30 MG XR TAB PO SCH (09:10)
[2017-08-10] MEDS: SIMVASTATIN 20 MG TAB PO SCH (09:10)
[2017-08-10] MEDS: buPROPion **XL** TABLET 150MG (WELLBUTRIN XL) PO SCH (09:10)
[2017-08-10] MEDS: PERCOCET 5MG/325MG TAB PO PRN (09:11)
[2017-08-10] MEDS ORDERED: METO50TA7 PO (10:15)
--- NOTE | 2017-08-10 15:48 | DS.PDOC ---
Discharge Summary General Date of Admission Aug 05, 2017 at 11:21 Date of Discharge 08/10/17 Attending Physician: ZULEMA CASTRO MD Specialist/Consultants Involve: Tonio Tirado Discharge Summary PROCEDURES PERFORMED DURING STAY: Right total hip arthroplasty ADMITTING/DISCHARGE DIAGNOSES: 1. Mechanical fall with right hip fracture status post right total hip arthroplasty 2. Leukocytosis/thrombocytosis/elevated hemoglobin- patient will need outpatient hematology/oncology follow-up for further workup 3. Hypertension 4. Hyperlipidemia 5. Chronic kidney disease stage III 6. Osteoporosis 7. Depression/anxiety 8. History of cystocele COMPLICATIONS/CHIEF COMPLAINT: Hip pain HISTORY OF PRESENT ILLNESS/HOSPITAL COURSE: This is a 87-year-old female with past medical history she process/ hyperlipidemia, chronic kidney disease, hypertension who presents with right hip pain status post fall. Patient was found to have right hip fracture for which she underwent a right hip arthroplasty. Over the course of hospitalization , the patient's was also noted to have elevated WBC/hemoglobin/platelets, with initial workup inconclusive. Patient will need to have outpatient hematology/ oncology workup to exclude malignancy. Patient is now hemodynamically stable and ready to be discharged. She will be going to PMR today. Patient does have a history of osteoporosis and will need close outpatient endocrine follow-up, especially in the setting of acute fracture. DISCHARGE MEDICATIONS: Please see below. ALLERGIES: Please see below. PHYSICAL EXAMINATION ON DISCHARGE: Vitals: (see below) General: No acute distress, laying comfortably in bed. HEENT: Moist mucous membranes. Neck: No JVD or lymphadenopathy Cardiac: RRR, No murmurs Pulm: Clear to auscultation b/l. No wheezing, rhonchi Abd: NT/ND + BS Ext: No edema or cyanosis. Right hip with pain with movement. Distal pulses intact. No bleeding noted. LABORATORY DATA: Please see below. IMAGING: PROGNOSIS: Guarded ACTIVITY: As tolerated. DIET: Low-sodium DISCHARGE PLAN/DISPOSITION: PMR DISCHARGE INSTRUCTIONS: 1. Patient's follow-up with PCP, endocrine, hematology/oncology in 1-2 weeks. DISCHARGE CONDITION: Stable. TIME SPENT ON DISCHARGE: Greater than 30 minutes. Vital Signs/I&Os Vital Signs Date Time Temp Pulse Resp B/P (MAP) Pulse Ox O2 Delivery O2 Flow Rate FiO2 08/10/17 09:41 20 08/10/17 09:10 136/70 08/10/17 09:09 84 08/10/17 06:00 98.6 96 Room Air 08/06/17 06:00 2.0 I&O- Last 24 Hours up to 6 AM 08/11/17 06:00 Intake Total 240 ml Balance 240 ml Laboratory Data Labs 24H Laboratory Tests 2 08/10/17 06:28: White Blood Count 16.7H, Red Blood Count 5.43H, Hemoglobin 13.5, Hematocrit 43.4 , Mean Corpuscular Volume 79.9L, Mean Corpuscular Hemoglobin 24.9L, Mean Corpuscular Hemoglobin Concent 31.1L, Red Cell Distribution Width 13.4, Platelet Count 626H, Monocytes # (Auto) , Nucleated Red Blood Cells % (auto) 0.0 , Neutrophils 74, Lymphocytes (Manual) 13L, Monocytes (Manual) 9H, Eosinophils ( Manual) 4, Platelet Estimate INCREASED, Prothrombin Time 22.6H, Prothromb Time International Ratio 1.92, Activated Partial Thromboplast Time 63.1H, Anion Gap 6L, Glomerular Filtration Rate 54.4, Blood Urea Nitrogen 33H, Creatinine 1.02, Sodium Level 139, Potassium Level 4.3, Chloride Level 104, Carbon Dioxide Level 29, Calcium Level 8.1L, Aspartate Amino Transf (AST/SGOT) 10L, Alanine Aminotransferase (ALT/SGPT) 13, Alkaline Phosphatase 60, Total Bilirubin 0.6, Total Protein 5.2L, Albumin 2.4L, Magnesium Level 2.8H, Albumin/Globulin Ratio 0.86L CBC/BMP Laboratory Tests 08/10/17 06:28 Red Blood Count 5.43 H, Mean Corpuscular Volume 79.9 L, Mean Corpuscular Hemoglobin 24.9 L, Mean Corpuscular Hemoglobin Concent 31.1 L, Red Cell Distribution Width 13.4, Monocytes # (Auto) , Calcium Level 8.1 L, Aspartate Amino Transf (AST/SGOT) 10 L, Alanine Aminotransferase (ALT/SGPT) 13, Alkaline Phosphatase 60, Total Bilirubin 0.6, Total Protein 5.2 L, Albumin 2.4 L Discharge Medications Scheduled (Senna Plus 8.6-50 mg) 1 Tab Tab, 1 TAB PO BID Bupropion Hcl (Bupropion HCl Xl) 150 Mg Tab, 150 MG PO DAILY, (Reported) Calcium Citrate (Calcitrate) 950 Mg Tab, 950 MG PO QMONTH, (Reported) Clonidine Hydrochloride (Clonidine HCl) 0.1 Mg/24 Hr Dis, 0.1 MG TD QWEEK, ( Reported) MONDAYS-CURRENTLY ON RIGHT ARM Isosorbide Mononitrate (Isosorbide Mononitrate ER) 30 Mg Tab, 30 MG PO DAILY, ( Reported) Metoprolol Tartrate (Metoprolol Tartrate) 50 Mg Tab, 50 MG PO BID Polyethylene Glycol (Peg 3350) 1 Pkt Pow, 1 PKT PO DAILY Simvastatin (Simvastatin) 20 Mg Tab, 20 MG PO DAILY, (Reported) Vitamin D (Drisdol) 50,000 Unit Cap, 50,000 UNIT PO QMONTH, (Reported) Scheduled PRN Acetaminophen (Mapap) 325 Mg Tab, 650 MG PO Q4HP PRN for TEMP >101 Ondansetron HCl (Ondansetron HCl) 4 Mg Tab, 4 MG PO Q4HP PRN for NAUSEA OR VOMITING Oxycodone/Acetaminophen (Percocet 5MG/325MG Tablet) 1 Tab Tab, 2 TAB PO Q4HP PRN for SEVERE PAIN (PS 8-10) Sodium Phosphate/Biphosphate (Fleet Enema 7-19 gm/118Ml) 1 Radha Radha, 0 EA WI DAILYPRN PRN for CONSTIPATION Allergies Coded Allergies: No Known Allergies (Unverified , 03/17/17) ZULEMA CASTRO MD Aug 10, 2017 15:48
[2017-08-10] MEDS ORDERED: WARFARIN SOD 2.5 MG TAB PO ONE (17:00)
[2017-08-13 08:17] LABS: APTT 47.1 sec (.); Anticardiolipin Ab, IgA <10 APL (.); DRVTT Confirm Seconds 42.1 sec (.); DRVTT Ratio 1.4 ratio (.); DRVTT Screen Seconds 64.8 sec (.)
== END 2017-08-10 13:30 | DRG 482 ==
LOC: M ED 08:48 → M ED INP 11:21 → M MS5PR 13:15
PROVIDERS: ADMIT Internal Medicine; ATTEND Internal Medicine
PROC: 0QS606Z Reposition Right Upper Femur with Intramedullary Internal Fixation Device, Open Approach (ICD-10-PCS; principal; 2017-08-05 11:58)
DX: S72.141A Displaced intertrochanteric fracture of right femur, initial encounter for closed fracture (principal); I13.10 Hypertensive heart and chronic kidney disease without heart failure, with stage 1 through stage 4 chronic kidney disease, or unspecified chronic kidney disease; N18.3 Chronic kidney disease, stage 3 (moderate); E78.5 Hyperlipidemia, unspecified; E55.9 Vitamin D deficiency, unspecified; M81.0 Age-related osteoporosis without current pathological fracture; E78.00 Pure hypercholesterolemia, unspecified; F32.9 Major depressive disorder, single episode, unspecified; F41.9 Anxiety disorder, unspecified; W01.0XXA Fall on same level from slipping, tripping and stumbling without subsequent striking against object, initial encounter; Y92.89 Other specified places as the place of occurrence of the external cause; Y93.01 Activity, walking, marching and hiking; Y99.9 Unspecified external cause status; Z79.899 Other long term (current) drug therapy; Z90.710 Acquired absence of both cervix and uterus; Z90.722 Acquired absence of ovaries, bilateral; Z98.41 Cataract extraction status, right eye; Z98.42 Cataract extraction status, left eye; Z87.891 Personal history of nicotine dependence

== ENCOUNTER 2017-08-10 08:39 | Inpatient (IN) | payer OTHER ==
[~2017-08-10] VITALS: Ht 160 cm; Wt 57.6 kg
[~2017-08-10 08:39] MED LIST changes: +BUPR150T3 PO; +CALC1TAB9 PO; +CLON0.1D3 TD; +DRIS50002 PO; +FLEEENE4 PR; +HYDR25TAB PO; +IRBE300T10 PO; +ISOS30TA4 PO; +MAPA325T3 PO; +METO100T5 PO; +ONDA4TAB5 PO; +PEG1POW PO; +PERCOCET PO; +SENN1TAB2 PO; +SIMV20TA2 PO
[2017-08-10] MEDS ORDERED: oxyCODONE 5MG TAB PO PRN ×2 (09:45)
[2017-08-10] MEDS ORDERED: FLEET ENEMA PR PRN (09:45)
[2017-08-10] MEDS ORDERED: METO50TA7 PO (10:15)
[2017-08-10 13:45] VITALS: BP 140/67
[2017-08-10] MEDS ORDERED: WARFARIN SOD 2.5 MG TAB PO ONE (17:00)
--- NOTE | 2017-08-10 18:26 | PMRHPE ---
DATE OF ADMISSION: 08/10/2017 REASON FOR ADMISSION: Rehabilitation of right hip fracture, status post 08/05/2017 fall and then 08/05/2017 open reduction internal fixation of right intertrochanteric hip fracture with a Synthes TFNA nail. HISTORY OF THE PRESENT ILLNESS: The patient is an 87-year-old white female who is fairly active and was outside walking her dog when she tripped on what she believed was a tree stump, falling backwards onto her buttock, developing significant pain in her right hip but not striking her head and having no loss of consciousness or other problems. Her [id number] was unable to get her up after she was called by the patient and then the patient was taken to the emergency room after the son arrived home and was able to get the patient into the car. The patient was evaluated at [facility] Emergency Room and found to be sensory motor intact except for right hip pain, stiffness and guarding and was evaluated and found to have sustained a right intertrochanteric fracture. The patient had another fall with left humerus fracture in May 2017, which also required an open reduction internal fixation. Patient who is right-handed had basically been living fairly independently, though she does live with her son and [id number]. The patient has been participating in physical and occupational therapy and making improvements, though she has had a course somewhat stressed by anemia and required transfusion. The patient, however, had reached the point where it was felt she would be able to participate in and benefit from acute intensive rehabilitation to facilitate her return to home. Therefore, the patient is admitted to the acute rehabilitation unit for a trial of musculoskeletal rehabilitation today, 08/10/2017. PAST MEDICAL HISTORY: Includes: 1. Atherosclerotic cardiovascular disease, including hypertension and hyperlipidemia. 2. Chronic kidney disease, level III. 3. Osteoporosis. 4. Vitamin D deficiency. 5. Depression, anxiety. 6. History of cystocele. PAST SURGICAL HISTORY: Includes: Hysterectomy and bilateral salpingo-oophorectomy in 1992. Bilateral cataract surgery in 2006. Left humerus fracture and open reduction internal fixation in May of 2017. FAMILY HISTORY: Noncontributory for this patient. 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 She does not use illicit drugs, has a 20 pack-year smoking history but has not smoked in the last 50 years and does drink on rare occasions some alcohol in social settings. ALLERGIES: No known drug allergies. MEDICATIONS ON ADMISSION: - Tylenol 650 mg every 6 hours for pain or fever - Wellbutrin XL 150 mg daily - clonidine 0.1 mg per 24-hour patch, changing weekly on Wednesday, topical agent - Senokot S one tablet twice a day - Imdur XR 30 mg daily for hypertension and atherosclerotic cardiovascular disease - metoprolol tartrate; I am changing the patient from 100 mg daily to 50 mg twice a day. Metoprolol tartrate is for atherosclerotic cardiovascular disease and hypertension control. - simvastatin 20 mg daily for elevated lipids - Coumadin; patient to receive 2.5 mg nightly in target range of 1.7 to 2.0 for deep vein thrombosis (DVT) prophylaxis - oxycodone 5 mg every 6 hours as needed for moderate pain, 10 mg every 6 hours as needed for severe pain REVIEW OF SYSTEMS: On a 10-point scale is negative except for the hip pain and difficulties noted above. PHYSICAL EXAMINATION: The patient is a 5 foot tall, 60 kg, 87-year-old white female who looks stated age and appears to be in mild musculoskeletal distress. She is well oriented, pleasant and a little hard of hearing. VITAL SIGNS: Temperature is 98.6, blood pressure 131/62, pulse 84, respirations 18 and pulse oximetry is 96% on room air. HEENT: Normocephalic, atraumatic using glasses for visual correction. Extraocular motions are intact. Pupils are equal, round, reactive to light and accommodation. Hearing is somewhat decreased. Tongue is midline. No facial asymmetry is noted. Nares are clear with straight septum. NECK: Supple. No carotid bruits appreciated and normal thyroid palpation. LUNGS: Clear in all fournier to auscultation. CORONARY: Shows a regular rate and rhythm with normal S1 and S2 without S3, S4 murmurs or rubs and 2/4 bilateral radial pulses. ABDOMEN: Very mildly obese but soft and nontender with no palpable masses and normal bowel sounds in all quadrants. EXTREMITIES: Bilateral upper and left lower extremity with functional range of motion and no tenderness or difficulty. Distal right lower extremity with good knee range of motion and ankle range of motion with some guarding around the right hip and dressings over the surgical incision and screw placement sites from the nail. NEUROLOGIC: The patient is alert and oriented to person, place, time and situation. Speech is clear, coherent and appropriate without any dysarthria or difficulty handling secretions. Affect is slightly anxious but in general pleasant and cooperative and memory is fair to good. Light touch is intact in bilateral upper and lower extremities. Vibration is intact in bilateral upper and lower extremities. Tongue is within normal limits in bilateral upper and lower extremities with 2/4 knee jerks. Biceps, brachial radialis 1/4. Triceps and ankle jerks and downgoing toes on plantar stimulation. Balance appears to be grossly intact while sitting. The patient was not stood at this time. LABORATORY DATA: Shows elevated white count of 16.7 thousand, which is a continuation of the leukocytosis previously noted to admission. Hemoglobin and hematocrit are normal at 13.5 and 43.4 with MCV diminished at 79.9 and platelets markedly elevated at 626,000, which has also been persistent thrombocytosis prior to admission. Neutrophils and monocytes are relatively elevated and lymphocytes are low, and eosinophils are elevated in number. Electrolytes are normal. BUN is elevated at 33, creatinine is within normal range at 1.02 with GFR of 54.4 and fasting glucose of 92 this morning. Calcium is reduced at 8.1 related to an albumin of 2.4 and total protein of 5.2, which are also reduced. Magnesium is elevated at 2.8 with normal total and direct bilirubin, mildly low AST, normal ALT and alkaline phosphatase, and normal lipid panel, as well as thyroid panel. INR is therapeutic at 1.92 today. Postoperative x-ray does show good positioning of the nail and stabilizing screws with alignment of the femoral neck to the femoral shaft. ASSESSMENT AND PLAN: 1. Rehabilitation of right intertrochanteric fracture with open reduction internal fixation with Synthes TFNA nail: The patient will be started on a trial of musculoskeletal rehabilitation with physical and occupational therapy to try to regain her mobility and activities of daily living (ADLs) to allow for return to the community and her to be able to be self-care. She does have a supportive family, but she needs to be independent for times when her son and [id number] are not available. The patient expresses her motivation and desire to do this and is felt by her prior therapist, as well as the care team to have the potential and ability to participate in acute intensive musculoskeletal rehabilitation of 3 hours per day. She does have multiple medical problems and will require rehabilitation nursing, physiatry and medicine consult to review these. Anticipated length of stay is approximately 7 days. 2. Leukocytosis. It is unclear what is causing this. It seems to have persisted longer than usually seen due to stress, but we will keep an eye on it and a medicine consultation has been sent to help follow this. 3. Thrombocytosis. Again, patient with elevation of platelet count, which seems to be turning around and heading towards a more normal level. Will continue to follow this with medicine service. 4. Osteoporosis. The patient will continue on treatment and work to rebuild strength. Will discuss with medicine the possibility of vitamin D and other medications, even calcium supplementation, to try and help with healing. 5. Anxiety/depression. We will continue to observe this and try to provide appropriate support and continue the patient on Wellbutrin XL. 6. Atherosclerotic cardiovascular disease, including hypertension and hyperlipidemia. Will continue the clonidine 0.1 mg per 24 hour patch along with isosorbide mononitrate XR 30 mg a day and metoprolol tartrate 50 mg twice a day and simvastatin 20 mg daily to control lipids. 7. Deep vein thrombosis (DVT) prophylaxis. Will go ahead and use thromboembolism deterrent (ANUSHA) hose plus progress patient's ambulation and try to maintain appropriate hydration. 8. Chronic kidney disease, stage III. Will work with the medicine service on this and to continue to follow regular comprehensive metabolic panels (CMPs) nd basic metabolic panels (BMPs), just as we will continue with complete blood counts (CBCs) to follow the leukocytosis and thrombocytosis noted above. 9. Pain management. At this time, I will transition the patient away from Percocet to oxycodone and look to diminish the use of that and consider possible trial and treatment with tramadol to get away from the more addictive opiate medications, which may also contribute to diminished bowel function. The patient is reported to have had bowel movement within the last 2 days, and appropriate agents such as Fleets enema and Senokot S have been ordered. POST ADMISSION PHYSICIAN EVALUATION: The patient has been consistent with preadmission screening and does appear to be very motivated to participate in and I believe very capable of benefiting from acute intensive rehabilitation. I am anticipating there should not be a significant problem with her doing 3 hours of therapy per day, and I feel she has a good prognosis for being discharged to home with family in approximately 1 week estimated length of stay. Time spent on chart review, history and physical and documentation is greater than 70 minutes. [email or web address]
[2017-08-10] MEDS: SENOKOT S TAB PO SCH (20:56)
[2017-08-10 21:15] VITALS: BP 133/63
[2017-08-11 06:00] VITALS: BP 125/60
[2017-08-11 06:43] LABS: BASO # 0.2 10^3/uL (0.0-0.2); BASO % 0.9 % (0.0-1.0); EOS # 0.7 10^3/uL (0.0-0.50); IMMATURE GRANULOCYTE % 1.2 % (0-0); LYMPH # 1.2 10^3/uL (1.5-4.5); LYMPH % 6.4 % (24.0-44.0); MEAN CORPUSCULAR HEMOGLOBIN 24.8 pg (27.0-33.0); MEAN CORPUSCULAR HGB CONC 31.2 g/dl (32.0-36.5); MEAN CORPUSCULAR VOLUME 79.5 fl (80.0-96.0); MONO % 12.3 % (0.0-5.0); NEUTROPHILS # 13.8 10^3/uL (1.8-7.7); NEUTROPHILS % 75.2 % (36.0-66.0); PLATELET COUNT, AUTOMATED 628 10^3/uL (150-450); RED CELL DISTRIBUTION WIDTH 13.2 % (11.5-14.5); WHITE BLOOD COUNT 18.3 10^3/uL (4.0-10.0)
[2017-08-11 06:57] LABS: INR 1.8
[2017-08-11 07:07] LABS: ALBUMIN 2.4 GM/DL (3.2-5.2); ALBUMIN/GLOBULIN RATIO 0.86 (1.00-1.93); ALKALINE PHOSPHATASE 61 U/L (45-117); ALT/SGPT 11 U/L (12-78); ANION GAP 6 MEQ/L (8-16); AST/SGOT 14 U/L (15-37); BILIRUBIN,TOTAL 0.6 MG/DL (0.2-1.0); BLOOD UREA NITROGEN 24 MG/DL (7-18); CALCIUM LEVEL 8.6 MG/DL (8.8-10.2); CARBON DIOXIDE LEVEL 28 MEQ/L (21-32); CHLORIDE LEVEL 104 MEQ/L (98-107); CREATININE FOR GFR 0.93 MG/DL (0.55-1.02); GLOMERULAR FILTRATION RATE > 60.0 (>32); GLUCOSE, FASTING 94 MG/DL (83-110); MAGNESIUM LEVEL 2.3 MG/DL (1.8-2.4); POTASSIUM SERUM 4.3 MEQ/L (3.5-5.1); SODIUM LEVEL 138 MEQ/L (136-145); TOTAL PROTEIN 5.2 GM/DL (6.4-8.2)
[2017-08-11 07:23] LABS: MONO # 2.3 10^3/uL (0.0-0.8)
[2017-08-11] MEDS: SIMVASTATIN 20 MG TAB PO SCH (09:33)
[2017-08-11] MEDS: METOPROLOL TART 50 MG TAB PO SCH ×2 (09:33→20:13)
[2017-08-11] MEDS: SENOKOT S TAB PO SCH ×2 (09:33→20:14)
[2017-08-11] MEDS: buPROPion **XL** TABLET 150MG (WELLBUTRIN XL) PO SCH (09:33)
[2017-08-11] MEDS: ISOSORBIDE MON. (IMDUR) 30 MG XR TAB PO SCH (10:14)
--- NOTE | 2017-08-11 12:36 | CR.PDOC ---
[facility] Consultation Consultation CONSULTATION REPORT FOR: Dr Hess REASON FOR CONSULTATION: Medical Management DATE OF VISIT: 08/11/17 ATTENDING: Dr. Marlon Hamilton HPI: Patient is an 87 year old female with a PMHx of HTN, DLP, CKD3, Osteoporosis, Vitamin D deficiency, Depression, Anxiety and Hx of a Cystocele who presented to the ER 08/05/17 with complaints of right hip pain after she had mechanical fall at home. She was found to have a right hip fracture, orthopedic surgery completed Rt hip ORIF on 08/05/17. Pt is transferred to the care of LAWRENCE Acosta, 08/10/17. Pt feels tired however no other complaints today. Denies any fevers, chills, weakness, fatigue, Headache, Chest Pain, Shortness of breath, cough, palpitations, abdominal pain, N/V/D or changes in bowel or bladder habits. 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 PE: GEN: 87yoF, appears stated age. Well-nourished, well developed. No acute distress. Alert and oriented x 3. Pleasant, interactive. HEENT: Normocephalic, atraumatic. Sclera are nonicteric. Conjunctiva without injection. Nose midline. Nasal turbinates without bogginess. No facial asymmetry. Moist mucous membranes. Dentition fair. Pharynx pink and moist, no cobblestoning. Neck supple, trachea midline. No lymphadenopathy or thyromegaly appreciated. CHEST: Regular rate and rhythm, +S1, +S2 LUNGS: Clear to auscultation bilaterally. No wheezes, rales, or rhonchi. Breathing appears symmetric and easy. Patient is speaking in full sentences. No accessory muscle use. ABD: Round, soft, non-tender, non-distended. +Bowel sounds throughout. No rebound or guarding. No costovertebral angle tenderness. EXT: Pulses 2+ bilaterally dorsalis pedis and radial. No lower extremity edema appreciated. SKIN: Graingers, dry, warm. Capillary refill <2sec. No rashes. NEURO: Alert and oriented x 3. Cranial nerves III-XII are intact. No focal deficits appreciated. Peripheral smear 08/06/17 Leukocytosis with neutrophilia, suggestive of a reactive/inflammatory process. No blasts are noted. RBCs and platelets are within normal range. Follow up with CBC, diff is recommended to ensure the white count normalizes A&P: Patient is an 87 year old female with a PMHx of HTN, DLP, CKD3, Osteoporosis, Vitamin D deficiency, Depression, Anxiety and Hx of a Cystocele who presented to the ER 08/05/17 with complaints of right hip pain after she had mechanical fall at home. She was found to have a right hip fracture, orthopedic surgery completed Rt hip ORIF on 08/05/17. Pt is transferred to the care of LAWRENCE Acosta, 08/10/17. 1. Mechancal Fall/Right hip fracture at femoral neck/s/p ORIF as per Orthopedics (08/05/17) Mgmt as per LAWRENCE Hess/Orthopedics. Pain control as per Dr Jimena BRAVO. Bowel care as per LAWRENCE/Dr Hess. PT/OT as per LAWRENCE/Dr Hess. DVT px as per Orthopedics. Pt on Coumadin. 2. Elevated WBC / Elevated Platelet Count. Labs compared to 05/2017 appear consistent with current labs Afebrile and review of systems remains negative UA unremarkable 08/11/17. Peripheral smear appears to have a reactive process; no evidence of blast cells Will continue to follow CBC trend 3. Elevated PTT HAs been trending downward Corrected with mixing study; indicating possible deficiency Factor VIII / IX level, Factor 8 function, vWF and Ristocetin Cofactor test remain pending No evidence of bleeding or thrombosis monitor. 4. HTN BP remains well controlled c/w Clonidine patch and Metoprolol Will hold Irbesartan and HCTZ 5. DLP c/w Simvastatin 6. Re-Elevated Cr on CKD3 Resolved. ARB/HCTZ on hold. Cr baseline appears to be between 1.2 and 1.3 7. Osteoporosis Will need to f/u outpatient with PCP 8. Vitamin D deficiency Will hold supplementation 9. Depression / Anxiety c/w Bupropion 10. Hx of a Cystocele Thank you for your consultation. We will continue to follow along with you. Vital Signs/I&O Vital Signs Date Time Temp Pulse Resp B/P (MAP) Pulse Ox O2 Delivery O2 Flow Rate FiO2 08/11/17 10:14 125/60 08/11/17 09:33 70 08/11/17 06:00 99.7 18 94 Room Air Laboratory Data Labs 24H Laboratory Tests 2 08/11/17 02:36: Urine Appearance CLEAR, Urine Color YELLOW, Urine pH 7.0, Urine Specific [place] 1.011, Urine Protein NEGATIVE, Urine Glucose (UA) NEGATIVE, Urine Ketones NEGATIVE, Urine Urobilinogen 0.2, Urine Bilirubin NEGATIVE, Urine Leukocyte Esterase NEGATIVE, Urine Blood NEGATIVE, Urine Nitrite NEGATIVE, Urine WBC (Auto) 0, Urine RBC (Auto) 2, Urine Hyaline Casts (Auto) 0, Urine Bacteria (Auto) 1+H, Urine Squamous Epithelial Cells 0, Urine Sperm (Auto) 08/11/17 06:22: Immature Granulocyte % (Auto) 1.2H, White Blood Count 18.3H, Red Blood Count 5.52H, Hemoglobin 13.7, Hematocrit 43.9, Mean Corpuscular Volume 79.5L, Mean Corpuscular Hemoglobin 24.8L, Mean Corpuscular Hemoglobin Concent 31.2L, Red Cell Distribution Width 13.2, Platelet Count 628H, Neutrophils (%) (Auto) 75.2H , Lymphocytes (%) (Auto) 6.4L, Monocytes (%) (Auto) 12.3H, Eosinophils (%) (Auto ) 4.0H, Basophils (%) (Auto) 0.9, Neutrophils # (Auto) 13.8H, Lymphocytes # ( Auto) 1.2L, Monocytes # (Auto) 2.3H, Eosinophils # (Auto) 0.7H, Basophils # ( Auto) 0.2, Immature Granulocyte # (Auto) 0.2H, Nucleated Red Blood Cells % (auto ) 0.0, Prothrombin Time 21.4H, Prothromb Time International Ratio 1.80, Activated Partial Thromboplast Time 53.1H, Anion Gap 6L, Glomerular Filtration Rate > 60.0, Blood Urea Nitrogen 24H, Creatinine 0.93, Sodium Level 138, Potassium Level 4.3, Chloride Level 104, Carbon Dioxide Level 28, Calcium Level 8.6L, Aspartate Amino Transf (AST/SGOT) 14L, Alanine Aminotransferase (ALT/SGPT ) 11L, Alkaline Phosphatase 61, Total Bilirubin 0.6, Total Protein 5.2L, Albumin 2.4L, Magnesium Level 2.3, Albumin/Globulin Ratio 0.86L CBC/BMP Laboratory Tests 08/11/17 06:22 Red Blood Count 5.52 H, Mean Corpuscular Volume 79.5 L, Mean Corpuscular Hemoglobin 24.8 L, Mean Corpuscular Hemoglobin Concent 31.2 L, Red Cell Distribution Width 13.2, Neutrophils (%) (Auto) 75.2 H, Lymphocytes (%) (Auto) 6.4 L, Monocytes (%) (Auto) 12.3 H, Eosinophils (%) (Auto) 4.0 H, Basophils (%) (Auto) 0.9, Neutrophils # (Auto) 13.8 H, Lymphocytes # (Auto) 1.2 L, Monocytes # (Auto) 2.3 H, Eosinophils # (Auto) 0.7 H, Basophils # (Auto) 0.2, Calcium Level 8.6 L, Aspartate Amino Transf (AST/SGOT) 14 L, Alanine Aminotransferase ( ALT/SGPT) 11 L, Alkaline Phosphatase 61, Total Bilirubin 0.6, Total Protein 5.2 L, Albumin 2.4 L Allergies Coded Allergies: No Known Allergies (Unverified , 03/17/17) Home Medications Scheduled (Senna Plus 8.6-50 mg) 1 Tab Tab, 1 TAB PO BID for 30 Days Bupropion Hcl (Bupropion HCl Xl) 150 Mg Tab, 150 MG PO DAILY, (Reported) Calcium Citrate (Calcitrate) 950 Mg Tab, 950 MG PO QMONTH, (Reported) Clonidine Hydrochloride (Clonidine HCl) 0.1 Mg/24 Hr Dis, 0.1 MG TD QWEEK, ( Reported) MONDAYS-CURRENTLY ON RIGHT ARM Isosorbide Mononitrate (Isosorbide Mononitrate ER) 30 Mg Tab, 30 MG PO DAILY, ( Reported) Metoprolol Tartrate (Metoprolol Tartrate) 50 Mg Tab, 50 MG PO BID, #30 Polyethylene Glycol (Peg 3350) 1 Pkt Pow, 1 PKT PO DAILY for 30 Days Simvastatin (Simvastatin) 20 Mg Tab, 20 MG PO DAILY, (Reported) Vitamin D (Drisdol) 50,000 Unit Cap, 50,000 UNIT PO QMONTH, (Reported) Scheduled PRN Acetaminophen (Mapap) 325 Mg Tab, 650 MG PO Q4HP PRN for TEMP >101 for 30 Days Ondansetron HCl (Ondansetron HCl) 4 Mg Tab, 4 MG PO Q4HP PRN for NAUSEA OR VOMITING for 30 Days Oxycodone/Acetaminophen (Percocet 5MG/325MG Tablet) 1 Tab Tab, 2 TAB PO Q4HP PRN for SEVERE PAIN (PS 8-10) for 30 Days Sodium Phosphate/Biphosphate (Fleet Enema 7-19 gm/118Ml) 1 Radha Radha, 0 EA MS DAILYPRN PRN for CONSTIPATION for 30 Days Tonya Brandon Aug 11, 2017 12:36
--- NOTE | 2017-08-11 13:05 | IPNPDOC ---
Prosthetic Aide Progress Note DATE OF SERVICE: 08/11/17 DATE OF ADMISSION: Aug 10, 2017 at 13:40 INPATIENT REHABILITATION ADMISSION DAY: #2 SUBJECTIVE: Patient is a 87-year-old white female with right hip fracture status post ORIF with Synthes TFNA nail. On 08/05/17 patient was out walking her doctor and tripped over backwards onto her right buttocks and developed pain in the right thigh was unable to get up she called her [id number], who was also unable to get her up. Her son was summoned and was able to bear up into the car and take her to the emergency room at [facility]. There was discovered the patient had sustained a right intertrochanteric fracture of the hip. Later that day patient had the open reduction internal fixation. She has since been working with physical and occupational therapy and progress and felt to be appropriate for acute intensive muscle skeletal rehabilitation and was admitted on 08/10/17. Patient notes that the hip pain is improving and expresses her motivation participate in therapy so she may return to living at home. She is without other complaints today. ALLERGIES: See Below MEDICATIONS: Reviewed, see below. OBJECTIVE: VITAL SIGNS: Please see below. PHYSICAL EXAMINATION: GENERAL: Well-nourished, well-developed, short, elderly, white female sitting up in manual wheelchair in very mild musculoskeletal distress, who is alert and well oriented. HEENT: Normocephalic/atraumatic, wearing glasses for visual correction. CARDIOVASCULAR: Regular rate and rhythm with normal S1, S2 without S3-S4 murmurs or rubs. 2 out 4 bilateral radial pulses. LUNGS: All fournier are clear to auscultation. ABDOMEN: Bowel sounds present in all quadrants. NEUROLOGICAL: Patient is alert and oriented 4. Speech is clear coherent and appropriate. Very mild anxiousness but overall is pleasant and cooperative. Memory is grossly intact. Motor shows good to full bilateral upper extremities and left lower extremity with good right lower extremity except for some guarding at the hip. SKIN: Patient with opti-foam dressings over right thigh nail and screw in surgeon sites. LABORATORY DATA: Reviewed. Please see below. MICROBIOLOGY: Please see below. IMAGING: No new imaging today. DVT prophylaxis ordered?: Coumadin with INR today 1.80. Patient also using sequential compression stockings and ANUSHA hose. ASSESSMENT AND PLAN: 1. Rehabilitation of right fracture with ORIF on 08/05/17: Patient started in physical and occupational therapy. Patient when seen early this morning had already ambulated approximately 70 feet with a front wheel walker in PT and had been up and dressed and done morning bathroom activities with occupational therapy. Patient showing very good motivation and significant daily change. I continue to anticipate her total length of stay to be 7 days. We will discuss this further in team rounds tomorrow. 2. Leukocytosis: WBC count is 18.3 thousand today. It is unclear why it continues to be this elevated and a patient without signs of infection whose level of stress should need diminishing. I will continue to work with medicine service on appropriate evaluation. 3. Thrombocythemia: Patient remains notably elevated at 628,000 platelets. I will continue to watch this with medicine service, but no specific treatment at this time. 4. DVT prophylaxis: Patient therapeutic on Coumadin and using sequential compression stockings and ANUSHA hose. Ms. Arzola of orthopedics service will make medication adjustments. Target range is 1.7-2.0 on the INR. 5. Acute on chronic kidney disease: Creatinine normal today at 0.93 with mild elevation of BUN at 24. At this time no changes in treatment are anticipated. I will defer to medicine consult on a adaptions or fluid adjustments for this patient. TIME SPENT: Chart Review, examination and documentation require greater than 25 minutes. Allergies Coded Allergies: No Known Allergies (Unverified , 03/17/17) Vital Signs Vital Signs Date Time Temp Pulse Resp B/P (MAP) Pulse Ox O2 Delivery O2 Flow Rate FiO2 08/11/17 10:14 125/60 08/11/17 09:33 70 08/11/17 06:00 99.7 18 94 Room Air Laboratory Data CBC/BMP Laboratory Tests 08/11/17 06:22 Red Blood Count 5.52 H, Mean Corpuscular Volume 79.5 L, Mean Corpuscular Hemoglobin 24.8 L, Mean Corpuscular Hemoglobin Concent 31.2 L, Red Cell Distribution Width 13.2, Neutrophils (%) (Auto) 75.2 H, Lymphocytes (%) (Auto) 6.4 L, Monocytes (%) (Auto) 12.3 H, Eosinophils (%) (Auto) 4.0 H, Basophils (%) (Auto) 0.9, Neutrophils # (Auto) 13.8 H, Lymphocytes # (Auto) 1.2 L, Monocytes # (Auto) 2.3 H, Eosinophils # (Auto) 0.7 H, Basophils # (Auto) 0.2, Calcium Level 8.6 L, Aspartate Amino Transf (AST/SGOT) 14 L, Alanine Aminotransferase ( ALT/SGPT) 11 L, Alkaline Phosphatase 61, Total Bilirubin 0.6, Total Protein 5.2 L, Albumin 2.4 L Labs 24H Laboratory Tests 2 08/11/17 02:36: Urine Appearance CLEAR, Urine Color YELLOW, Urine pH 7.0, Urine Specific [place] 1.011, Urine Protein NEGATIVE, Urine Glucose (UA) NEGATIVE, Urine Ketones NEGATIVE, Urine Urobilinogen 0.2, Urine Bilirubin NEGATIVE, Urine Leukocyte Esterase NEGATIVE, Urine Blood NEGATIVE, Urine Nitrite NEGATIVE, Urine WBC (Auto) 0, Urine RBC (Auto) 2, Urine Hyaline Casts (Auto) 0, Urine Bacteria (Auto) 1+H, Urine Squamous Epithelial Cells 0, Urine Sperm (Auto) 08/11/17 06:22: Immature Granulocyte % (Auto) 1.2H, White Blood Count 18.3H, Red Blood Count 5.52H, Hemoglobin 13.7, Hematocrit 43.9, Mean Corpuscular Volume 79.5L, Mean Corpuscular Hemoglobin 24.8L, Mean Corpuscular Hemoglobin Concent 31.2L, Red Cell Distribution Width 13.2, Platelet Count 628H, Neutrophils (%) (Auto) 75.2H , Lymphocytes (%) (Auto) 6.4L, Monocytes (%) (Auto) 12.3H, Eosinophils (%) (Auto ) 4.0H, Basophils (%) (Auto) 0.9, Neutrophils # (Auto) 13.8H, Lymphocytes # ( Auto) 1.2L, Monocytes # (Auto) 2.3H, Eosinophils # (Auto) 0.7H, Basophils # ( Auto) 0.2, Immature Granulocyte # (Auto) 0.2H, Nucleated Red Blood Cells % (auto ) 0.0, Prothrombin Time 21.4H, Prothromb Time International Ratio 1.80, Activated Partial Thromboplast Time 53.1H, Anion Gap 6L, Glomerular Filtration Rate > 60.0, Blood Urea Nitrogen 24H, Creatinine 0.93, Sodium Level 138, Potassium Level 4.3, Chloride Level 104, Carbon Dioxide Level 28, Calcium Level 8.6L, Aspartate Amino Transf (AST/SGOT) 14L, Alanine Aminotransferase (ALT/SGPT ) 11L, Alkaline Phosphatase 61, Total Bilirubin 0.6, Total Protein 5.2L, Albumin 2.4L, Magnesium Level 2.3, Albumin/Globulin Ratio 0.86L Current Medications Current Medications Current Medications Acetaminophen (Tylenol Tab) 650 mg Q6HP PRN PO PAIN OR FEVER; Start 08/10/17 at 09:45; Stop 09/09/17 at 09:44 Bupropion HCl (Wellbutrin Xl) 150 mg DAILY PO Last administered on 08/11/17 09 :33; Start 08/11/17 at 09:00; Stop 09/10/17 at 08:59 Clonidine HCl (Jhzhyuej-Ure-7) 1 ea Mo@09 TOP ; Start 08/16/17 at 09:00; Stop 09/15/17 at 08:59 Isosorbide Mononitrate (Imdur) 30 mg DAILY PO Last administered on 08/11/17 10 :14; Start 08/11/17 at 09:00; Stop 09/10/17 at 08:59 Metoprolol Tartrate (Lopressor) 50 mg BID PO Last administered on 08/11/17 09: 33; Start 08/11/17 at 09:00; Stop 09/10/17 at 08:59 Oxycodone HCl (Roxicodone, Oxyir) 5 mg Q6HP PRN PO MODERATE PAIN (PS 5-7); Start 08/10/17 at 09:45; Stop 08/17/17 at 09:44 Oxycodone HCl (Roxicodone, Oxyir) 10 mg Q6HP PRN PO SEVERE PAIN (PS 8-10); Start 08/10/17 at 09:45; Stop 08/17/17 at 09:44 Senna/Docusate Sodium (Senokot S) 1 tab BID PO Last administered on 08/11/17 09:33; Start 08/10/17 at 21:00; Stop 09/09/17 at 20:59 Simvastatin (Zocor) 20 mg DAILY PO Last administered on 08/11/17 09:33; Start 08/11/17 at 09:00; Stop 09/10/17 at 08:59 Sodium Biphosphate/ Sodium Phosphate (Fleet Enema) 1 ea DAILYPRN PRN MD CONSTIPATION; Start 08/10/17 at 09:45; Stop 09/09/17 at 09:44 TIFFANY HERNANDEZ MD Aug 11, 2017 13:05
[2017-08-11 14:00] VITALS: BP 134/66
[2017-08-11] MEDS ORDERED: WARFARIN SOD 2.5 MG TAB PO ONE (17:00)
[2017-08-11 20:00] VITALS: BP 132/74
[2017-08-12 06:00] VITALS: BP 122/60
[2017-08-12 07:27] LABS: INR 2.03
[2017-08-12] MEDS: buPROPion **XL** TABLET 150MG (WELLBUTRIN XL) PO SCH (08:26)
[2017-08-12] MEDS: SIMVASTATIN 20 MG TAB PO SCH (08:27)
[2017-08-12] MEDS: ISOSORBIDE MON. (IMDUR) 30 MG XR TAB PO SCH (08:27)
[2017-08-12] MEDS: SENOKOT S TAB PO SCH ×2 (08:28→21:00)
[2017-08-12] MEDS: METOPROLOL TART 50 MG TAB PO SCH ×2 (08:28→21:17)
--- NOTE | 2017-08-12 10:30 | IPNPDOC ---
Candle Cutter Progress Note DATE OF SERVICE: 08/12/17 DATE OF ADMISSION: Aug 10, 2017 at 13:40 INPATIENT REHABILITATION ADMISSION DAY: #3 SUBJECTIVE: Patient is a 87-year-old white female with right hip fracture status post ORIF with Synthes TFNA nail. On 08/05/17 patient was out walking her doctor and tripped over backwards onto her right buttocks and developed pain in the right thigh was unable to get up she called her [id number], who was also unable to get her up. Her son was summoned and was able to bear up into the car and take her to the emergency room at [facility]. There was discovered the patient had sustained a right intertrochanteric fracture of the hip. Later that day patient had the open reduction internal fixation. She has since been working with physical and occupational therapy and progress and felt to be appropriate for acute intensive muscle skeletal rehabilitation and was admitted on 08/10/17. Patient notes that the hip pain is improving and expresses her motivation participate in therapy so she may return to living at home. She is without other complaints today. ALLERGIES: See Below MEDICATIONS: Reviewed, see below. OBJECTIVE: VITAL SIGNS: Please see below. PHYSICAL EXAMINATION: GENERAL: Well-nourished, well-developed, short, elderly, white female sitting up in manual wheelchair in very mild musculoskeletal distress, who is alert and well oriented. HEENT: Normocephalic/atraumatic, wearing glasses for visual correction. CARDIOVASCULAR: Regular rate and rhythm with normal S1, S2 without S3-S4 murmurs or rubs. 2 out 4 bilateral radial pulses. LUNGS: All fournier are clear to auscultation. ABDOMEN: Bowel sounds present in all quadrants. NEUROLOGICAL: Patient is alert and oriented 4. Speech is clear coherent and appropriate. Pleasant and cooperative. Memory is grossly intact. Motor shows good to full bilateral upper extremities and left lower extremity with good right lower extremity except for some guarding at the hip. SKIN: Patient with opti-foam dressings over right thigh nail and screw in surgeon sites. LABORATORY DATA: Reviewed. Please see below. MICROBIOLOGY: Please see below. IMAGING: No new imaging today. DVT prophylaxis ordered?: Coumadin with INR today 2.03. Patient also using sequential compression stockings and ANUSHA hose. ASSESSMENT AND PLAN: 1. Rehabilitation of right fracture with ORIF on 08/05/17: Patient started in physical and occupational therapy. Patient when seen early this morning had already ambulated approximately 70 feet with a front wheel walker in PT and had been up and dressed and done morning bathroom activities with occupational therapy. Patient showing very good motivation and significant daily change. I continue to anticipate her total length of stay to be 7 days. REHAB. TEAM ROUNDS: Patient with good effort and for age good endurance. She is currently Supervision to [facility] in most ADL's and mobility with good pain tolerance. Patient is expected to achieve Discharge goal for home by 08/16/17 as she does need to be Independent to Modified Independent in ADL's & mobility to function at home, where she is alone frequently. 2. Leukocytosis: WBC count is 18.3 thousand on 08/11/17. It is unclear why it continues to be this elevated and a patient without signs of infection whose level of stress should need diminishing. I will continue to work with medicine service on appropriate evaluation. 3. Thrombocythemia: Patient remains notably elevated at 628,000 platelets. I will continue to watch this with medicine service, but no specific treatment at this time. 4. DVT prophylaxis: Patient therapeutic on Coumadin and using sequential compression stockings and ANUSHA hose. Ms. Arzola of orthopedics service will make medication adjustments. Target range is 1.7-2.0 on the INR. 5. Acute on chronic kidney disease: Creatinine normal at 0.93 with mild elevation of BUN at 24. At this time no changes in treatment are anticipated. I will defer to medicine consult on a adaptions or fluid adjustments for this patient. Mg++ stable at 2.3 in normal range. TIME SPENT: Chart Review, examination and documentation require greater than 25 minutes. Allergies Coded Allergies: No Known Allergies (Unverified , 03/17/17) Vital Signs Vital Signs Date Time Temp Pulse Resp B/P (MAP) Pulse Ox O2 Delivery O2 Flow Rate FiO2 08/12/17 08:28 61 122/60 08/12/17 06:00 98.5 16 96 Room Air Laboratory Data Labs 24H Laboratory Tests 2 08/12/17 06:46: Prothrombin Time 23.6H, Prothromb Time International Ratio 2.03, Magnesium Level 2.3 Current Medications Current Medications Current Medications Acetaminophen (Tylenol Tab) 650 mg Q6HP PRN PO PAIN OR FEVER; Start 08/10/17 at 09:45; Stop 09/09/17 at 09:44 Bupropion HCl (Wellbutrin Xl) 150 mg DAILY PO Last administered on 08/12/17 08 :26; Start 08/11/17 at 09:00; Stop 09/10/17 at 08:59 Clonidine HCl (Jqbachgu-Vlx-7) 1 ea Mo@09 TOP ; Start 08/16/17 at 09:00; Stop 09/15/17 at 08:59 Isosorbide Mononitrate (Imdur) 30 mg DAILY PO Last administered on 08/12/17 08 :27; Start 08/11/17 at 09:00; Stop 09/10/17 at 08:59 Metoprolol Tartrate (Lopressor) 50 mg BID PO Last administered on 08/12/17 08: 28; Start 08/11/17 at 09:00; Stop 09/10/17 at 08:59 Oxycodone HCl (Roxicodone, Oxyir) 5 mg Q6HP PRN PO MODERATE PAIN (PS 5-7); Start 08/10/17 at 09:45; Stop 08/17/17 at 09:44 Oxycodone HCl (Roxicodone, Oxyir) 10 mg Q6HP PRN PO SEVERE PAIN (PS 8-10); Start 08/10/17 at 09:45; Stop 08/17/17 at 09:44 Senna/Docusate Sodium (Senokot S) 1 tab BID PO Last administered on 08/11/17 09:33; Start 08/10/17 at 21:00; Stop 09/09/17 at 20:59 Simvastatin (Zocor) 20 mg DAILY PO Last administered on 08/12/17 08:27; Start 08/11/17 at 09:00; Stop 09/10/17 at 08:59 Sodium Biphosphate/ Sodium Phosphate (Fleet Enema) 1 ea DAILYPRN PRN MO CONSTIPATION; Start 08/10/17 at 09:45; Stop 09/09/17 at 09:44 TIFFANY HERNANDEZ MD Aug 12, 2017 10:29
[2017-08-12 14:00] VITALS: BP 109/59
[2017-08-12] MEDS ORDERED: WARFARIN SOD 1 MG TAB PO ONE (17:00)
[2017-08-12 20:30] VITALS: BP 135/71
[2017-08-12] MEDS: ACETAMINOPHEN TAB 650MG DOSE (2X325MG) PO PRN (21:17)
[2017-08-13 06:00] VITALS: BP 147/66
[2017-08-13 07:20] LABS: MEAN CORPUSCULAR HEMOGLOBIN 24.6 pg (27.0-33.0); MEAN CORPUSCULAR HGB CONC 30.8 g/dl (32.0-36.5); MEAN CORPUSCULAR VOLUME 79.9 fl (80.0-96.0); RED CELL DISTRIBUTION WIDTH 13.2 % (11.5-14.5); WHITE BLOOD COUNT 17.5 10^3/uL (4.0-10.0)
[2017-08-13 07:25] LABS: INR 2.18
[2017-08-13 07:43] LABS: CREATININE FOR GFR 0.99 MG/DL (0.55-1.02); GLOMERULAR FILTRATION RATE 56.4 (>32); POTASSIUM SERUM 4.4 MEQ/L (3.5-5.1)
[2017-08-13 08:56] VITALS: BP 132/62
[2017-08-13] MEDS: SIMVASTATIN 20 MG TAB PO SCH (08:57)
[2017-08-13] MEDS: SENOKOT S TAB PO SCH ×2 (08:57→21:57)
[2017-08-13] MEDS: METOPROLOL TART 50 MG TAB PO SCH ×2 (08:57→21:57)
[2017-08-13] MEDS: buPROPion **XL** TABLET 150MG (WELLBUTRIN XL) PO SCH (08:57)
[2017-08-13] MEDS: ISOSORBIDE MON. (IMDUR) 30 MG XR TAB PO SCH (08:58)
--- NOTE | 2017-08-13 12:53 | IPNPDOC ---
[employer] Machine Offbearer Progress Note DATE OF SERVICE: 08/13/17 DATE OF ADMISSION: Aug 10, 2017 at 13:40 INPATIENT REHABILITATION ADMISSION DAY: #4 SUBJECTIVE: Patient is a 87-year-old white female with right hip fracture status post ORIF with Synthes TFNA nail. On 08/05/17 patient was out walking her doctor and tripped over backwards onto her right buttocks and developed pain in the right thigh was unable to get up she called her [id number], who was also unable to get her up. Her son was summoned and was able to bear up into the car and take her to the emergency room at [facility]. There was discovered the patient had sustained a right intertrochanteric fracture of the hip. Later that day patient had the open reduction internal fixation. Patient notes that the hip pain is improving and expresses her motivation participate in therapy so she may return to living at home. She is not needing any opiates at this time for pain control. She is without other complaints today. ALLERGIES: See Below MEDICATIONS: Reviewed, see below. OBJECTIVE: VITAL SIGNS: Please see below. PHYSICAL EXAMINATION: GENERAL: Well-nourished, well-developed, short, elderly, white female sitting up in manual wheelchair in very mild musculoskeletal distress, who is alert and well oriented. HEENT: Normocephalic/atraumatic, wearing glasses for visual correction. CARDIOVASCULAR: Regular rate and rhythm with normal S1, S2 without S3-S4 murmurs or rubs. 2 out 4 bilateral radial pulses. LUNGS: All fournier are clear to auscultation. ABDOMEN: Bowel sounds present in all quadrants. NEUROLOGICAL: Patient is alert and oriented 4. Speech is clear coherent and appropriate. Pleasant and cooperative. Memory is grossly intact. Motor shows good to full bilateral upper extremities and left lower extremity with good right lower extremity except for some guarding at the hip. SKIN: Patient with opti-foam dressings over right thigh nail and screw in surgeon sites. LABORATORY DATA: Reviewed. Please see below. MICROBIOLOGY: Please see below. IMAGING: No new imaging today. DVT prophylaxis ordered?: Coumadin with INR today 2.18. Patient also using sequential compression stockings and ANUSHA hose. ASSESSMENT AND PLAN: 1. Rehabilitation of right fracture with ORIF on 08/05/17: Patient with good effort and for age good endurance. She is currently Supervision to CGA in most ADL's and mobility with good pain tolerance. Patient is expected to achieve Discharge goal for home by 08/16/17 as she does need to be Independent to Modified Independent in ADL's & mobility to function at home, where she is alone frequently. 2. Leukocytosis: WBC count is 18.3 thousand on 08/11/17 and 17.5K today 08/13/17. It appears to be stress related and now improving. I will continue to work with medicine service. 3. Thrombocythemia: Patient remains notably elevated at 607,000 platelets and trending down. I will continue to watch this with medicine service, but no specific treatment at this time. 4. DVT prophylaxis: Patient therapeutic on Coumadin and using sequential compression stockings and ANUSHA hose. Ms. Arzola of orthopedics service will make medication adjustments. Target range is 1.7-2.0 on the INR. No Coumadin for tonight 5. Acute on chronic kidney disease: Creatinine normal at 0.99 with elevation higher of BUN at 31. At this time no changes in treatment are anticipated. I will defer to medicine consult on a adaptions or fluid adjustments for this patient. TIME SPENT: Chart Review, examination and documentation require greater than 25 minutes. Allergies Coded Allergies: No Known Allergies (Unverified , 03/17/17) Vital Signs Vital Signs Date Time Temp Pulse Resp B/P (MAP) Pulse Ox O2 Delivery O2 Flow Rate FiO2 08/13/17 08:58 132/62 08/13/17 08:57 66 08/13/17 08:00 Room Air 08/13/17 06:00 97.8 18 96 Laboratory Data CBC/BMP Laboratory Tests 08/13/17 06:55 Red Blood Count 5.52 H, Mean Corpuscular Volume 79.9 L, Mean Corpuscular Hemoglobin 24.6 L, Mean Corpuscular Hemoglobin Concent 30.8 L, Red Cell Distribution Width 13.2, Calcium Level 8.0 L Labs 24H Laboratory Tests 2 08/13/17 06:55: Prothrombin Time 25.1H, Prothromb Time International Ratio 2.18, Anion Gap 4L, Glomerular Filtration Rate 56.4, Blood Urea Nitrogen 23H, Creatinine 0.99, Sodium Level 142, Potassium Level 4.4, Chloride Level 108H, Carbon Dioxide Level 30, Calcium Level 8.0L Current Medications Current Medications Current Medications Acetaminophen (Tylenol Tab) 650 mg Q6HP PRN PO PAIN OR FEVER Last administered on 08/12/17 21:17; Start 08/10/17 at 09:45; Stop 09/09/17 at 09:44 Bupropion HCl (Wellbutrin Xl) 150 mg DAILY PO Last administered on 08/13/17 08 :57; Start 08/11/17 at 09:00; Stop 09/10/17 at 08:59 Clonidine HCl (Ykrrunfd-Jmk-0) 1 ea Mo@09 TOP ; Start 08/16/17 at 09:00; Stop 09/15/17 at 08:59 Isosorbide Mononitrate (Imdur) 30 mg DAILY PO Last administered on 08/13/17 08 :58; Start 08/11/17 at 09:00; Stop 09/10/17 at 08:59 Metoprolol Tartrate (Lopressor) 50 mg BID PO Last administered on 08/13/17 08: 57; Start 08/11/17 at 09:00; Stop 09/10/17 at 08:59 Oxycodone HCl (Roxicodone, Oxyir) 5 mg Q6HP PRN PO SEVERE PAIN (PS 8-10); Start 08/10/17 at 09:45; Stop 08/19/17 at 23:55 Oxycodone HCl (Roxicodone, Oxyir) 10 mg Q6HP PRN PO SEVERE PAIN (PS 8-10); Start 08/10/17 at 09:45; Stop 08/19/17 at 23:55; Status Cancel Senna/Docusate Sodium (Senokot S) 1 tab BID PO Last administered on 08/13/17 08:57; Start 08/10/17 at 21:00; Stop 09/09/17 at 20:59 Simvastatin (Zocor) 20 mg DAILY PO Last administered on 08/13/17 08:57; Start 08/11/17 at 09:00; Stop 09/10/17 at 08:59 Sodium Biphosphate/ Sodium Phosphate (Fleet Enema) 1 ea DAILYPRN PRN PA CONSTIPATION; Start 08/10/17 at 09:45; Stop 09/09/17 at 09:44 TIFFANY HERNANDEZ MD Aug 13, 2017 12:53
[2017-08-13 14:00] VITALS: BP 141/63
[2017-08-13 20:00] VITALS: BP 142/69
[2017-08-13] MEDS: ACETAMINOPHEN TAB 650MG DOSE (2X325MG) PO PRN (21:56)
[2017-08-14 06:00] VITALS: BP 154/62
[2017-08-14 07:10] LABS: INR 2.35
[2017-08-14] MEDS: ISOSORBIDE MON. (IMDUR) 30 MG XR TAB PO SCH (08:31)
[2017-08-14] MEDS: SENOKOT S TAB PO SCH ×3 (08:31→21:00)
[2017-08-14] MEDS: buPROPion **XL** TABLET 150MG (WELLBUTRIN XL) PO SCH (08:31)
[2017-08-14] MEDS: SIMVASTATIN 20 MG TAB PO SCH (08:31)
[2017-08-14] MEDS: METOPROLOL TART 50 MG TAB PO SCH ×2 (08:31→20:09)
[2017-08-14 14:00] VITALS: BP 130/72
[2017-08-14] MEDS: ACETAMINOPHEN TAB 650MG DOSE (2X325MG) PO PRN (18:50)
[2017-08-14 20:00] VITALS: BP 134/72
[2017-08-15 06:00] VITALS: BP 122/57
[2017-08-15 06:53] LABS: INR 2.03
[2017-08-15] MEDS ORDERED: COUM2.5T17 PO (07:43)
[2017-08-15] MEDS: buPROPion **XL** TABLET 150MG (WELLBUTRIN XL) PO SCH (08:57)
[2017-08-15] MEDS: SIMVASTATIN 20 MG TAB PO SCH (08:57)
[2017-08-15] MEDS: ISOSORBIDE MON. (IMDUR) 30 MG XR TAB PO SCH (08:58)
[2017-08-15] MEDS: SENOKOT S TAB PO SCH ×2 (08:58→20:05)
[2017-08-15] MEDS: METOPROLOL TART 50 MG TAB PO SCH ×2 (08:58→20:05)
[2017-08-15 14:00] VITALS: BP 112/68
[2017-08-15] MEDS ORDERED: WARFARIN SOD 1 MG TAB PO ONE (17:00)
[2017-08-15 20:00] VITALS: BP 132/70
[2017-08-15] MEDS: ACETAMINOPHEN TAB 650MG DOSE (2X325MG) PO PRN (20:04)
[2017-08-16 06:00] VITALS: BP 120/70
[2017-08-16 06:55] LABS: MEAN CORPUSCULAR HGB CONC 31.3 g/dl (32.0-36.5); MEAN CORPUSCULAR VOLUME 79.7 fl (80.0-96.0); RED CELL DISTRIBUTION WIDTH 13.3 % (11.5-14.5); WHITE BLOOD COUNT 19.2 10^3/uL (4.0-10.0)
[2017-08-16 07:10] LABS: INR 2.01
[2017-08-16] MEDS ORDERED: cloNIDine HCL 0.1 MG/24 HR PATCH TOP SCH (09:00)
[2017-08-16] MEDS: SENOKOT S TAB PO SCH ×2 (09:00→20:42)
[2017-08-16] MEDS: buPROPion **XL** TABLET 150MG (WELLBUTRIN XL) PO SCH (09:02)
[2017-08-16] MEDS: METOPROLOL TART 50 MG TAB PO SCH ×2 (09:03→20:40)
[2017-08-16] MEDS: ISOSORBIDE MON. (IMDUR) 30 MG XR TAB PO SCH (09:03)
[2017-08-16] MEDS: SIMVASTATIN 20 MG TAB PO SCH (09:03)
[2017-08-16 14:00] VITALS: BP 130/72
[2017-08-16] MEDS ORDERED: WARFARIN 1.25 MG PER 1/2 TABLET PO ONE (17:00)
[2017-08-16 20:30] VITALS: BP 121/61
[2017-08-16] MEDS: ACETAMINOPHEN TAB 650MG DOSE (2X325MG) PO PRN (20:41)
[2017-08-17 06:00] VITALS: BP 118/67
[2017-08-17 08:27] VITALS: BP 118/67
[2017-08-17] MEDS: METOPROLOL TART 50 MG TAB PO SCH (08:27)
[2017-08-17] MEDS: SIMVASTATIN 20 MG TAB PO SCH (08:27)
[2017-08-17] MEDS: ISOSORBIDE MON. (IMDUR) 30 MG XR TAB PO SCH (08:27)
[2017-08-17] MEDS: SENOKOT S TAB PO SCH (08:27)
[2017-08-17] MEDS: buPROPion **XL** TABLET 150MG (WELLBUTRIN XL) PO SCH (08:27)
[2017-08-17 08:33] LABS: INR 1.99
[2017-08-17 14:00] VITALS: BP 130/70
--- NOTE | 2017-08-17 16:12 | PMRDS ---
DATE OF ADMISSION: 08/10/2017 DATE OF DISCHARGE: DISCHARGE DIAGNOSIS: Rehabilitation of right hip fracture status post open reduction internal fixation with Synthes TFNA nail on 08/05/2017, following fracture earlier that day. HISTORY: Patient is an 87-year-old white female who has been fairly active and was out walking her dog. She reports tripping and falling backwards onto her buttocks, developing right hip pain and not being able to get up nor was her [id number] able to help her get up. Her son was able to get her up and brought her to [facility], where she was found to have sustained a right intertrochanteric hip fracture. The patient, of note, had a left humeral fracture from a fall in May of 2017, which required open reduction internal fixation and having some problems with the left shoulder mobility and strength since then. However, she has been living independently as she is right hand dominant and has been doing fairly well other than with her left shoulder and was working with occupational therapy and physical therapy on overcoming the humeral fracture. Patient was started in physical therapy (PT) and occupational therapy (OT) and was progressing and felt to be able to participate in and benefit from acute intensive rehabilitation. Notable for having leukocytosis and thrombocytosis which we have followed and monitored and feel they are stress related. She also does have notable atherosclerotic cardiovascular disease, including hypertension and hyperlipidemia, as well as chronic kidney disease stage III, osteoporosis, vitamin D deficiency, depression/anxiety, and history of a cystocele. She is status post total hysterectomy in 1992 and bilateral cataract surgery in 2006, and then the open reduction internal fixation of the left humerus in May of 2017. PROCEDURES ON THIS UNIT: None. DIAGNOSTIC AND LABORATORY DATA: Patient with white blood cell count of 18.3 on admission that dipped down during the course of the admission and bounced to 17.5 and bounced back up to 19.2 without fever, chills, or any other signs of infection in spite of an elevation of neutrophils and immature granulocytes. The patient has not been anemic during the course of the admission with a hemoglobin and hematocrit on discharge of 13.8 and 44.1%. However, her platelet count has been elevated at 628,000 on admission and remained elevated at 698,000 at discharge. Chemistry shows the patient with normal electrolytes on admission and near normal at discharge, with only the chloride abnormal at 108, being mildly elevated. BUN on admission 24 and at discharge is 23, and creatinine has remained stable. Calcium has declined from 8.6 to 8.0 during the course of the admission and patient has an albumin of 2.4, but liver function tests have not been elevated. The patient has been on Coumadin management and her INR has consistently been at about the target range of 1.7 to 2.0 and on discharge today she is 1.99. HOSPITAL COURSE: The patient is admitted to the acute rehabilitation unit on 08/10/2017, showing very good motivation and attention to work and detail. The patient, on admission, was standby assist in most of her transfers to contact guard, but bathing and lower body dressing required minimal assistance and her standing balance was fair plus. The patient, however, has advanced to modified independent in transfers with lower body dressing now standby assistance and standing static balance up to good and dynamic at good minus. In physical therapy, patient started at ambulating 30 feet with contact guard assistance and not being able to do stairs, progressing to 50% weightbearing using a front-wheeled walker and having independent to modified independent in all bed mobilities and transfers, ambulating 305 feet with modified independence using a front-wheeled walker, and able to perform two stairs. The patient, overall, has been medically stable in spite of the abnormal white blood cell count and platelet count, which will be further evaluated by her primary care. DISCHARGE MEDICATIONS: - Coumadin 2.5 mg every other day, to have monitoring by home care nursing - Tylenol - Wellbutrin XL 150 mg daily - Calcitrate 950 mg monthly - clonidine 0.1 mg per 24 hour patch, change weekly - isosorbide mononitrate extended release 3 mg daily - metoprolol tartrate 50 mg twice a day for hypertension - Zofran every 4 hours as needed severe nausea or vomiting - MiraLAX one packet daily for bowel program - Senokot-S one tablet twice a day for bowel program - simvastatin 20 mg daily for cholesterol - vitamin D 50,000 units monthly COMPLICATIONS: None. DISCHARGE PLAN INSTRUCTIONS: Patient discharged to home with home care including nursing and monitoring of prothrombin time and INR and reporting to [facility]. The patient is to return to that clinic within about 2 weeks and to see her primary care within 2 weeks. TIME SPENT ON DISCHARGE: Greater than 35 minutes.
== END 2017-08-17 16:00 | disposition home health service (06) | DRG 561 ==
LOC: M PM&R 13:40
PROVIDERS: ADMIT Physical Medicine & Rehabilitation; ATTEND Physical Medicine & Rehabilitation
DX: S72.141D Displaced intertrochanteric fracture of right femur, subsequent encounter for closed fracture with routine healing (principal); W01.0XXD Fall on same level from slipping, tripping and stumbling without subsequent striking against object, subsequent encounter; Y92.480 Sidewalk as the place of occurrence of the external cause; Y93.01 Activity, walking, marching and hiking; Y99.9 Unspecified external cause status; I25.10 Atherosclerotic heart disease of native coronary artery without angina pectoris; E78.5 Hyperlipidemia, unspecified; N18.3 Chronic kidney disease, stage 3 (moderate); M81.0 Age-related osteoporosis without current pathological fracture; I12.9 Hypertensive chronic kidney disease with stage 1 through stage 4 chronic kidney disease, or unspecified chronic kidney disease; D72.829 Elevated white blood cell count, unspecified; E55.9 Vitamin D deficiency, unspecified; D47.3 Essential (hemorrhagic) thrombocythemia; F32.9 Major depressive disorder, single episode, unspecified; F41.9 Anxiety disorder, unspecified; Z90.710 Acquired absence of both cervix and uterus; Z90.722 Acquired absence of ovaries, bilateral; Z98.42 Cataract extraction status, left eye; Z98.41 Cataract extraction status, right eye; Z87.891 Personal history of nicotine dependence; Z79.899 Other long term (current) drug therapy

== ENCOUNTER → 2017-10-09 | Outpatient (REF) | payer OTHER ==
[~2017-10-09] MED LIST changes: +AMOX500C PO; +COUM2.5T17 PO; +METO50TA7 PO
== END ==
LOC: M LAB REF 16:57
PROVIDERS: ATTEND Physician Assistant Medical
DX: J02.9 Acute pharyngitis, unspecified (principal)

== ENCOUNTER 2017-10-10 19:47 | Emergency (ER) | payer OTHER ==
[~2017-10-10] VITALS: Ht 160 cm; Wt 53.6 kg
[~2017-10-10 19:47] MED LIST changes: -AMOX500C PO
[2017-10-10] MEDS ORDERED: METO100T5 PO (20:05)
[2017-10-10] MEDS ORDERED: IRBE300T10 PO (20:05)
[2017-10-10] MEDS ORDERED: AMOXICILLIN 500 MG CAP PO ONE (20:45)
[2017-10-10] MEDS ORDERED: AMOX500C PO (21:59)
[2017-10-10] MEDS ORDERED: KETOROLAC 30 MG/ML VIAL (J1885) IM ONE (22:00)
[2017-10-10 22:06] VITALS: BP 197/86
--- NOTE | 2017-10-10 22:19 | REP ---
Clinical: Trauma. Technique: Frontal view of the chest with multiple views of the left hemithorax. Findings: Frontal view of the chest demonstrates no acute cardiopulmonary process. Multiple views of the left hemithorax demonstrates no obvious acute rib fracture or pathology. Impression: No obvious acute left rib fracture identified. Signed by Ron Bonilla MD 10/10/2017 10:11 P
== END 2017-10-10 22:42 | disposition home or self-care (01) ==
LOC: M ED 19:47
DX: S20.219A Contusion of unspecified front wall of thorax, initial encounter (principal); J02.9 Acute pharyngitis, unspecified; W01.198A Fall on same level from slipping, tripping and stumbling with subsequent striking against other object, initial encounter; Y92.002 Bathroom of unspecified non-institutional (private) residence as the place of occurrence of the external cause; Y93.01 Activity, walking, marching and hiking; Y99.8 Other external cause status; I10 Essential (primary) hypertension; E78.5 Hyperlipidemia, unspecified; F41.9 Anxiety disorder, unspecified; N28.9 Disorder of kidney and ureter, unspecified; Z79.899 Other long term (current) drug therapy; Z87.891 Personal history of nicotine dependence
CPT/HCPCS: 71101; 96372; 99283; J1885

== ENCOUNTER → 2018-02-28 | Outpatient (REF) | payer OTHER, MEDICARE ==
[2018-02-28 18:57] LABS: BASO # 0.4 10^3/uL (0.0-0.2); BASO % 1.4 % (0.0-1.0); EOS # 1.1 10^3/uL (0.0-0.50); HEMATOCRIT 55.6 % (36.0-47.0); HEMOGLOBIN 16.4 g/dl (12.0-15.5); IMMATURE GRANULOCYTE % 1.1 % (0-3.0); LYMPH # 1.8 10^3/uL (1.5-4.5); LYMPH % 6.2 % (24.0-44.0); MEAN CORPUSCULAR HEMOGLOBIN 23.1 pg (27.0-33.0); MEAN CORPUSCULAR HGB CONC 29.5 g/dl (32.0-36.5); MEAN CORPUSCULAR VOLUME 78.4 fl (80.0-96.0); MONO % 11.2 % (0.0-5.0); NEUTROPHILS # 21.4 10^3/uL (1.8-7.7); NEUTROPHILS % 76.1 % (36.0-66.0); PLATELET COUNT, AUTOMATED 985 10^3/uL (150-450); RED BLOOD COUNT 7.09 10^6/uL (4.00-5.40); RED CELL DISTRIBUTION WIDTH 17.2 % (11.5-14.5); WHITE BLOOD COUNT 28.1 10^3/uL (4.0-10.0)
[2018-02-28 19:45] LABS: TOTAL 25(OH) VITAMIN D 25.2 NG/ML (30.0-100.0)
[2018-02-28 19:46] LABS: ALBUMIN 3.9 GM/DL (3.2-5.2); ALKALINE PHOSPHATASE 108 U/L (45-117); ALT/SGPT 23 U/L (12-78); ANION GAP 6 MEQ/L (8-16); AST/SGOT 20 U/L (7-37); BILIRUBIN,TOTAL 0.5 MG/DL (0.2-1.0); BLOOD UREA NITROGEN 38 MG/DL (7-18); CALCIUM LEVEL 9.1 MG/DL (8.8-10.2); CARBON DIOXIDE LEVEL 31 MEQ/L (21-32); CHLORIDE LEVEL 105 MEQ/L (98-107); CREATININE FOR GFR 1.43 MG/DL (0.55-1.30); FREE T4 0.85 NG/DL (0.76-1.46); GLOMERULAR FILTRATION RATE 36.9 (>32); GLUCOSE, FASTING 94 MG/DL (70-100); POTASSIUM SERUM 4.4 MEQ/L (3.5-5.1); SODIUM LEVEL 142 MEQ/L (136-145); TOTAL PROTEIN 6.9 GM/DL (6.4-8.2)
[2018-02-28 19:50] LABS: MONO # 3.2 10^3/uL (0.0-0.8); POSITIVE DIFF POS FLAG
== END ==
LOC: M SFHCADAM 18:36
DX: M81.0 Age-related osteoporosis without current pathological fracture (principal); H91.90 Unspecified hearing loss, unspecified ear; I10 Essential (primary) hypertension; Z79.899 Other long term (current) drug therapy
CPT/HCPCS: 84443

== ENCOUNTER → 2018-03-02 | Outpatient (REF) | payer OTHER, MEDICARE ==
[2018-03-02 19:49] LABS: REASON FOR REVIEW WBC/LEUKEMIA/BLAST; SLIDE REVIEW Report; SOURCE PERIPHERAL SMEAR
== END ==
LOC: M SFHCADAM 03-03 11:06
DX: R79.89 Other specified abnormal findings of blood chemistry (principal)

== ENCOUNTER → 2018-03-16 | Outpatient (REF) | payer OTHER ==
[2018-03-29 07:47] LABS: JAK2 MUTATIONS FOR PATH SENDOU See Pathology Report
[2018-03-29 07:47] LABS: BCR/ABL SCREEN FOR CML PATH SO See Pathology Report
== END ==
LOC: M SFHCADAM 15:09
DX: R79.89 Other specified abnormal findings of blood chemistry (principal)
CPT/HCPCS: 88300

== ENCOUNTER → 2018-08-02 | Outpatient (REF) | payer OTHER ==
[2018-08-02 19:58] LABS: BASO # 0.1 10^3/uL (0.0-0.2); BASO % 1.2 % (0.0-1.0); EOS # 0.3 10^3/uL (0.0-0.50); EOS % 2.9 % (0.0-3.0); HEMATOCRIT 60.4 % (36.0-47.0); HEMOGLOBIN 18.7 g/dl (12.0-15.5); IMMATURE GRANULOCYTE % 0.3 % (0-3.0); LYMPH # 1.1 10^3/uL (1.5-4.5); LYMPH % 9.7 % (24.0-44.0); MEAN CORPUSCULAR HEMOGLOBIN 25.3 pg (27.0-33.0); MEAN CORPUSCULAR VOLUME 81.8 fl (80.0-96.0); MONO # 1.7 10^3/uL (0.0-0.8); MONO % 14.8 % (0.0-5.0); NEUTROPHILS # 8.1 10^3/uL (1.8-7.7); NEUTROPHILS % 71.1 % (36.0-66.0); PLATELET COUNT, AUTOMATED 611 10^3/uL (150-450); RED BLOOD COUNT 7.38 10^6/uL (4.00-5.40); RED CELL DISTRIBUTION WIDTH 21.7 % (11.5-14.5); WHITE BLOOD COUNT 11.5 10^3/uL (4.0-10.0)
== END ==
LOC: M LAB REF 19:10
DX: D47.1 Chronic myeloproliferative disease (principal); Z79.899 Other long term (current) drug therapy
CPT/HCPCS: 85025

== ENCOUNTER → 2018-08-16 | Outpatient (REF) | payer OTHER ==
[2018-08-16 14:43] LABS: BASO # 0.1 10^3/uL (0.0-0.2); EOS # 0.3 10^3/uL (0.0-0.50); EOS % 2.4 % (0.0-3.0); HEMATOCRIT 54.1 % (36.0-47.0); HEMOGLOBIN 16.8 g/dl (12.0-15.5); IMMATURE GRANULOCYTE % 0.4 % (0-3.0); LYMPH % 7.5 % (24.0-44.0); MEAN CORPUSCULAR HEMOGLOBIN 25.9 pg (27.0-33.0); MEAN CORPUSCULAR HGB CONC 31.1 g/dl (32.0-36.5); MEAN CORPUSCULAR VOLUME 83.5 fl (80.0-96.0); MONO # 1.7 10^3/uL (0.0-0.8); MONO % 12.7 % (0.0-5.0); NEUTROPHILS # 9.9 10^3/uL (1.8-7.7); PLATELET COUNT, AUTOMATED 496 10^3/uL (150-450); RED BLOOD COUNT 6.48 10^6/uL (4.00-5.40); RED CELL DISTRIBUTION WIDTH 22.7 % (11.5-14.5)
== END ==
LOC: M LAB REF 14:08
DX: D47.1 Chronic myeloproliferative disease (principal)
CPT/HCPCS: 85025

== ENCOUNTER → 2018-10-21 | Outpatient (REF) | payer OTHER ==
[~2018-10-21] MED LIST changes: +AMOX500C PO; +ASPI81TA85 PO; -DRIS50002 PO; +DRIS50003 PO; +VITA100066 PO; -VITA1CAP40; +VITA50005
[2018-10-21 18:57] LABS: BASO # 0.2 10^3/uL (0.0-0.2); BASO % 1.5 % (0.0-1.0); EOS # 0.4 10^3/uL (0.0-0.50); EOS % 2.2 % (0.0-3.0); HEMATOCRIT 54.9 % (36.0-47.0); HEMOGLOBIN 17.6 g/dl (12.0-15.5); LYMPH # 1.2 10^3/uL (1.5-4.5); LYMPH % 7.1 % (24.0-44.0); MEAN CORPUSCULAR HEMOGLOBIN 30.3 pg (27.0-33.0); MEAN CORPUSCULAR HGB CONC 32.1 g/dl (32.0-36.5); MEAN CORPUSCULAR VOLUME 94.7 fl (80.0-96.0); MONO % 13.1 % (0.0-5.0); NEUTROPHILS # 12.2 10^3/uL (1.8-7.7); NEUTROPHILS % 75.6 % (36.0-66.0); PLATELET COUNT, AUTOMATED 559 10^3/uL (150-450); WHITE BLOOD COUNT 16.1 10^3/uL (4.0-10.0)
[2018-10-21 19:00] LABS: BILIRUBIN,TOTAL 0.5 MG/DL (0.2-1.0); CREATININE FOR GFR 1.42 MG/DL (0.55-1.30); GLOMERULAR FILTRATION RATE 37.1 (>32); POTASSIUM SERUM 4.6 MEQ/L (3.5-5.1)
[2018-10-21 19:07] LABS: MONO # 2.1 10^3/uL (0.0-0.8)
== END ==
LOC: M SFHCADAM 17:12
PROVIDERS: ATTEND Family Medicine
DX: I10 Essential (primary) hypertension (principal); D47.1 Chronic myeloproliferative disease; R73.01 Impaired fasting glucose; Z23 Encounter for immunization
CPT/HCPCS: 80053; 85025; 90670; 90682; G0008; G0009; G0463

== ENCOUNTER → 2018-10-21 | Outpatient (CLI) | payer OTHER | LOC: M ADAMS 17:25 | DX: I10 Essential (primary) hypertension (principal); D47.1 Chronic myeloproliferative disease; R73.01 Impaired fasting glucose; Z53.8 Procedure and treatment not carried out for other reasons ==

== ENCOUNTER → 2018-11-29 | Outpatient (REF) | payer OTHER ==
[~2018-11-29] MED LIST changes: +HYDR500C3 PO
[2018-11-29 19:34] LABS: BASO # 0.1 10^3/uL (0.0-0.2); EOS # 0.3 10^3/uL (0.0-0.50); EOS % 2.2 % (0.0-3.0); HEMATOCRIT 53.2 % (36.0-47.0); HEMOGLOBIN 16.8 g/dl (12.0-15.5); LYMPH # 1.1 10^3/uL (1.5-4.5); LYMPH % 8.2 % (24.0-44.0); MEAN CORPUSCULAR HEMOGLOBIN 32.4 pg (27.0-33.0); MEAN CORPUSCULAR HGB CONC 31.6 g/dl (32.0-36.5); MEAN CORPUSCULAR VOLUME 102.5 fl (80.0-96.0); MONO % 14.5 % (0.0-5.0); NEUTROPHILS # 10.2 10^3/uL (1.8-7.7); NEUTROPHILS % 73.5 % (36.0-66.0); PLATELET COUNT, AUTOMATED 561 10^3/uL (150-450); RED BLOOD COUNT 5.19 10^6/uL (4.00-5.40); WHITE BLOOD COUNT 13.9 10^3/uL (4.0-10.0)
[2018-11-29 19:38] LABS: ALBUMIN 3.9 GM/DL (3.2-5.2); BILIRUBIN,TOTAL 0.5 MG/DL (0.2-1.0); CREATININE FOR GFR 1.52 MG/DL (0.55-1.30); GLOMERULAR FILTRATION RATE 34.3 (>32); POTASSIUM SERUM 4.9 MEQ/L (3.5-5.1); TOTAL PROTEIN 6.5 GM/DL (6.4-8.2)
== END ==
LOC: M LABDRWAD 18:57
PROVIDERS: ATTEND Internal Medicine Hematology & Oncology
DX: D47.1 Chronic myeloproliferative disease (principal)